=== PATIENT | male | born 1970 | race Caucasian/White ===

== ENCOUNTER 2024-06-29 14:29 | Outpatient (AMB) | payer MEDICARE, SELFPAY ==
--- NOTE | 2024-06-29 14:31 | A.OFFVIS_ITS ---
Vital Signs 06/29/24 14:36 Height 5 ft 9 in Weight 200 lb BMI 29.5 BP 142/91 H Blood Pressure Location Rt brachial Position Sitting Pulse 101 H Pulse Source Pulse Oximeter Pulse Oximetry (%) 99 Oxygen Delivery Method Room Air Intake Visit Reasons: Lumbago with sciatica, left side Vice President Risk Management Required: Yes Vice President Risk Management Language: Maintenance Mechanic Technician Services: Vice President Risk Management Present Vice President Risk Management Name: Reese Information Interpreted: non-clinical & clinical Allergies No Known Allergies Allergy (Verified 06/29/24 14:36) HPI HPI Lumbago with sciatica, left side: Details: The patient is a 54-year-old male presenting with chronic low back pain radiating to the left hip and knee, persisting over two years. The patient rates this pain as most intense during mornings and afternoons, with a reduction in severity during evenings. There has been no injury associated with this onset of pain, and the patient has not undergone any invasive procedures, although he is currently engaged in physical therapy at [facility]. The pain radiates to left buttock and into left hip with occasional radiation into groin with cramping. Patient also reports history of bilateral knee pain due to osteoarthritis and worsening left knee pain. He reports bilateral knee pain exacerbated by cold weather conditions, walking, and climbing stairs, with tenderness increasing during certain movements such as bending. An MRI previously conducted did not elucidate a cause for the ongoing back and sciatica pain per PCP referral notes. A complete MRI report is not available for review today. Diagnosed knee osteoarthritis adds to this complex pain scenario. Further complications include reliance on a cane due to intermittent leg weakness and the presence of psychiatric disorders. He receives [employer] ASSEMBLER services, including assistance of taking daily medications as he cannot read. The patient has been on ibuprofen therapy, which provides some relief for the hip, back and knee-related discomfort. - Onset/Timing: Chronic, ongoing for about two years; worse in morning and afternoon, better in the evening. - Quality/Character: Tingling numbness, cramping, hurting, sore sensation. - Primary Location: Low back. Left knee. - Radiation: Left buttock, back of the left leg, hip and groin. - Exacerbating Factors: Morning and afternoon time, walking, climbing stairs, cold weather, bending down, bending backward. - Relieving Factors: Evening, resting. - Interference with Activities: Walking, use of a cane due to leg weakness, difficulty with stairs. - Affect: Pain has led to potential avoidance of interventions involving needles. - Analgesia: Currently taking ibuprofen 800 mg as needed every eight hours for pain, reported as helpful. - Adverse Effects: None reported from ibuprofen. - Activities of Daily Living: Pain causes difficulty in walking and using stairs; requires use of a cane. - Aberrant Drug Related Behaviors: None reported. [facility] Medical History Thalassemia trait Amputation of left little finger Hearing loss Anxiety Sleep disturbance Hyperlipidemia Erectile dysfunction Bipolar 1 disorder Schizophrenia Depression Social History Alcohol intake: never Patient Tobacco Use Status: Former Tobacco user Review of Systems Const Details: - Musculoskeletal: Reports low back pain radiating to the left buttock and leg, bilateral knee pain, left worse than right; denies foot pain. - Neurological: Reports cramping, numbness and tingling sensation. - Psychiatric: Reports bipolar disorder and paranoid schizophrenia. - Respiratory: Denies smoking currently or any recent cessation issues. - Social: Denies alcohol use for the past 20 years. All systems reviewed & are unremarkable except as noted in HPI and below Physical Exam Vital Signs: Last Vital Signs Pulse 101 H 06/29/24 14:36 BP 142/91 H 06/29/24 14:36 Pulse Ox 99 06/29/24 14:36 Oxygen Delivery Method Room Air 06/29/24 14:36 BMI result Body Mass Index 29.5 General: Appears afebrile. Alert and oriented. Mood and affect appropriate. Follows and participates in conversation appropriately. Respiratory effort is unlabored. No cough. Able to transition from sit to stand unassisted. Uses cane with ambulation. Ambulates with bilaterally normal heel strike and toe off. General: Yes no CVA tenderness Back/Spine/Pelvis Other: Limited lumbar ROM due to pain. Mildly antalgic gait with slight limping. Can flex forward to 75-80 degrees and extend to 5-10 degrees before experiencing lumbar pain. Demonstrates 5/5 strength of quadriceps bilaterally as well as flexion/dorsiflexion of bilateral feet against resistance. 2+ pedal pulses bilaterally. Straight leg rise with dorsiflexion negative bilaterally. +1 patellar and achilles reflexes bilaterally. Facet loading test positive bilaterally. Naveed sign, Juan?s, Pelvic compression and Stinchfield tests are positive bilaterally, left>right. Mild groin pain with I/E hip rotations on the left. Valsalva maneuver negative. Back: no CVA tenderness Cervical Spine: cervical ROM normal and No Cervical spine tenderness Thoracic/Lumbar Spine: thoracic and lumbar spine normal to inspection, No Thoracic/lumbar spine scar(s), Lasegue's sign negative, straight leg raise negative bilaterally, pain with thoraco-lumbar ROM, No thoracic spinal tenderness and No lumbar spinal tenderness Pelvis: buttock tenderness on the left Sacroiliac joints: bilaterally tender to palpation Extrem General: Yes capillary refill normal, Yes no clubbing, cyanosis or edema and Yes no calf tenderness Left lower extremity: knee (Limited ROM due to pain.) Details: normal to inspection, tenderness Location: of the medial joint line and of the lateral joint line and crepitus; no swelling, no ecchymosis and no unusual warmth Results Reviewed Results Reviewed: No imaging results are available for review today. Assessment & Plan Assessment & Plan (1) Left hip pain: Code(s): M25.552 - Pain in left hip Category: Medical (2) Chronic low back pain: Code(s): M54.50 - Low back pain, unspecified; G89.29 - Other chronic pain Category: Medical (3) Bilateral knee pain: Code(s): M25.561 - Pain in right knee; M25.562 - Pain in left knee Category: Medical (4) Bilateral primary osteoarthritis of knee: Code(s): M17.0 - Bilateral primary osteoarthritis of knee Category: Medical (5) Sacroiliac joint pain: Code(s): M53.3 - Sacrococcygeal disorders, not elsewhere classified Category: Medical Plan The patient's chronic low back pain with left-sided sciatica presents today with axial low back pain with left hip and SI joint pain components. His left side pain is also complicated by chronic left knee pain. Patient will continue with physical therapy, Ibuprofen and specific non-pharmacologic measures, including the application of heat or ice to manage symptoms. X-rays for the knee, hip, and lower back are ordered to further investigate any progression of osteoarthritis or other pain contributors. Ibuprofen remains part of the therapeutic regimen, providing symptomatic relief, while balancing this approach with the patient's psychological health support. Future management will depend on x-ray outcomes and release of lumbar MRI from PCP office and ongoing symptom evaluation. All questions and concerns have been answered and patient agreed with the plan. Follow up for xray results and sooner as needed. Patient was informed and verbally consented to the use of an ambient scribe for clinic note documentation during this visit. Orders: Orders XR knee LT 3V Today M25.561 - Pain in right knee, M25.562 - Pain in left knee XR lumbar spine 4V min Today G89.29 - Other chronic pain, M25.552 - Pain in left hip, M54.50 - Low back pain, unspecified XR hip LT w PEL1V Today M25.552 - Pain in left hip Coding Level of Care Code New Pt Level 4 (86916) Diagnoses Left hip pain M25.552 Chronic low back pain M54.50; G89.29 Bilateral knee pain M25.561; M25.562 Bilateral primary osteoarthritis of knee M17.0 Sacroiliac joint pain M53.3
[2024-06-29 14:36] VITALS: BP 142/91; PULSE 101; O2SAT 99; BMI 29.5
--- OUTSIDE RECORDS SUMMARY | 2024-06-29 17:32 | XMS_ITS | Clinical Summary ---
Author Organization [facility] Address [address] [place] [address] Care Team Providers Care Beverage Server Name Role Phone Bandar Goode COMBUSTION ENGINEER Primary Care Provider [phone] Source Comments PLEASE NOTE, if this patient is a minor, it may be UNLAWFUL to discuss sensitive information that is contained in these records (such as FAMILY PLANNING, MENTAL HEALTH or SUBSTANCE ABUSE) with the minor patient's parent or other person without the patient's specific authorization.[facility] Allergies No known active allergies Medications QUEtiapine (SEROQUEL) 200 mg tabletIndicatio ns:Anxiety and depression Take 1 Tab by mouth nightly at bedtime PER PSYCH 7 Active benztropine (COGENTIN) 1 mg tabletIndicatio ns:Anxiety and depression Take 1 Tab by mouth 2 (two) times daily PER PSYCH 7 Active citalopram (CELEXA) 40 mg tabletIndicatio ns:Anxiety and depression Take 1 Tab by mouth every morning PER PSYCH 7 Active citalopram (CELEXA) 20 mg tablet TK 1 T PO QD IN THE MORNING 3 8 Active risperiDONE (RISPERDAL) 4 mg tablet Take 8 mg by mouth nightly at bedtime 1 Active cloNIDine (CATAPRES) 0.1 mg tabletIndicatio ns:Anxiety and depression Take 0.1 mg by mouth 3 (three) times daily 2 Active guanFACINE (TENEX) 1 mg tabletIndicatio ns:Anxiety and depression TAKE 1 TABLET BY MOUTH TWICE DAILY FOR MOOD OR ANXIETY 2 Active clonazePAM (KLONOPIN) 1 mg tabletIndicatio ns:Anxiety and depression TAKE 1 TABLET BY MOUTH THREE TIMES DAILY NEEDED FOR ANXIETY 2 Active acetaminophen (TYLENOL) 500 mg tabletIndicatio ns:Bilateral chronic knee pain Take 2 Tablets by mouth every 6 (six) hours as needed for pain 120 Tablet 2 2 Active simvastatin (ZOCOR) 20 mg tabletIndicatio ns:Dyslipidemia TAKE 1 TABLET BY MOUTH EVERY NIGHT AT BEDTIME 90 Tablet 2 3 Active ibuprofen 800 mg tablet TAKE 1 TABLET BY MOUTH THREE TIMES DAILY NEEDED FOR PAIN 60 Tablet 2 3 Active diclofenac sodium (VOLTAREN) 1 % gelIndications: Chronic pain of left knee APPLY TOPICALLY TO THE AFFECTED AREA TWICE DAILY 100 g 1 3 Active Active Problems Problem Noted Date Diagnosed Date Gynecomastia 02/02/2022 Auditory hallucination 01/27/2022 Overview (01/27/2022): Admits voices tell him to harm himself Bilateral chronic knee pain 01/27/2022 Alpha thalassemia trait 01/14/2021 Overview (01/14/2021): Per heme and genetics- no further workup needed Not immune to hepatitis B virus 11/24/2016 Overview (11/24/2016): Refuses shots Alcoholism in remission ([facility]) 06/30/2016 Pterygium eye 03/25/2015 Anxiety and depression 10/04/2014 Overview (01/27/2022): Jan 2022: [facility] is provider 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 Overview (10/04/2014): Since a kid Never had therapy Applying for disab and got appt with a speech therapist in [place] Immunizations Immunization Administration Dates Next Due Moderna COVID-19 Vaccine, re d cap blue label, 12+ Primary Series 08/05/2020,07/06/2020,07/06/2020 PNEUMOCOCCAL POLYSACCHARIDE PPV23 08/05/2017 TDAP 08/05/2017 ZOSTER VACCINE, RECOMBINANT (SHINGRIX) 2,01/14/2021 Family History Medical History Relation Name Comments No Known Problems Brother Other Father accident Heart attack Maternal Grandfather Liver disease Mother No Known Problems Sister No Known Problems Son 1 Relation Name Status Comments Brother Alive Father Maternal Grandfather Mother Sister Alive Son 1 Alive Social History Tobacco Use Types Packs/Day Years Used Date Smoking Tobacco: Former Cigarettes 1 22 Smokeless Tobacco: Former Quit: 12/05/2004 Tobacco Cessation:Counseling Given: Not Answered Comments:quit Alcohol Use Standard Drinks/Week Comments No 0 (1 standard drink = 0.6 oz pur e alcohol) Social Connections Answer Date Recorded Connectedness 0 10/14/2020 Financial Resource Strain Answer Date R ecorded Financial Resource Strain 0 2020 Stress Answer Date Recorded Stress 0 10/14/2020 Physical Activity Answer Date Recorded Physical Activity 0 11/06/2018 Food Insecurity Answer Date Recorded Food 0 10/14/2020 Transportation Needs Answer Date Record ed Transportation 0 11/06/2018 Housing Stability Answer Date Recorded Housing 0 10/14/2020 Safety and Environment Answer Date Denny rded Safety 0 10/14/2020 Utilities Answer Date Recorded Utilities 0 10/14/2020 Employment Answer Date Recorded Employment 0 11/06/2018 Sex and Gender Information Value Date Recorded Sex Assigned at Male 08/05/2017 12:48 PM PDT Legal Sex Male 11:18 AM PDT Gender Identity Male 08/05/2017 12:48 PM PDT Sexual Orientation Straight 08/05/2017 12 :48 PM PDT Occupation Industry Job Start Date Job End Date disabled Not on file Not on file Not on file Last Filed Vital Signs Vital Sign Reading Time Taken Comments Blood Pressure 112/69 06/01/2022 9:58 AM EDT Pulse 91 06/01/2022 9:58 AM EDT Temperature 37.1 ??C (98.7 ??F) 01/27/2022 9:36 AM ES T Respiratory Rate 18 01/27/2022 9:36 AM EST Oxygen Saturation 99% 01/27/2022 9:36 AM EST Inhaled Oxygen Concentration - - Weight 92.6 kg (204 lb 1.6 oz) 01/27/2022 9:36 A M EST Height 175.3 cm (5' 9 ) 01/27/2022 9:36 AM EST Body Mass Index 30.14 01/27/2022 9:36 AM EST Plan of Treatment Health Maintenance Due Date Last Done Comments Anxiety Screening 1970 Dental FMX/Pano 1969 Dental Perio Charting 1970 Tobacco Screening 1970 Imm-Hepatitis B (1 of 3 - 19 + 3-dose series) 02/08/1988 CT Colonography 2014 Colonoscopy 2014 Fecal DNA 2014 Flexible Sigmoidoscopy 2014 Imm-Pneumococcal (2 of 2 - PCV) 08/05/2018 8 Depression Monitoring 04/29/2022 01/27/2022 , 01/14/2021, 08/14/2020, Additional history exists Annual Preventive Care Visit 01/27/2023, 08/14/2020, 08/05/2017, Additional history exists Colorectal Cancer Screening 01/27/2023 Diabetes Screening 01/27/2023 01/27/2022, 1 03/29/2021, 04/02/2020, Additional history exists FIT/gFOBT 01/27/2023 01/27/2022, 08/21/2020 Lipid Screening 01/27/2023 01/27/2022, 03/15, 12/05/2018, Additional history exists Hypertension Screening (#1) 06/01/2023 Dental BW 06/04/2023 06/01/2022, 12/01/2021 Dental Examination 06/04/2023 06/01/2022, 0 06/01/2022, 12/01/2021 Dental Prophy 06/04/2023 06/01/2022, 12/01/2021 [id number] ( season) 2023 08/05/2020, 07/06/2020, 07/06/2020 Alcohol and Drug Screen 03/15/2024 01/28/20, 08/14/2020, 05/11/2019, Additional history exists Imm-DTaP/Tdap/Td (2 - Td or Tdap) 08/06/2027 018 Imm-Influenza Discontinued 03/25/2015 Imm-Zoster, Recombinant Completed 05/12/2021, 01/14 HIV Screening Completed 01/27/2022, 07/13, 10/04/2014 Hepatitis C Screening Completed 01/27/2022 , 06/30/2016, 07/26/2015, Additional history exists Procedures Procedure Name Priority Date/Time Associated Diagnosis Comments BITEWINGS - FOUR RADIOGRAPHIC IMAGES Routine 06/01/2022 10:20 AM EDT Caries Full PROPHYLAXIS - ADULT Routine 06/01/2022 10:20 AM EDT Caries PERIODIC ORAL EVALUATION ESTABLISHED PATIENT Routine 06/01/2022 10:20 AM EDT Caries FECAL GLOBIN BY IMMUNOCHEMISTRY (FIT) Routine 01/27/2022 7:00 PM EST Examination, medical, general HIV 1/2 AG & AB W/RFLX (4TH GEN) Routine 01/27/2022 10:20 AM EST Examination, medical, general HEPATITIS C AB W/RFLX HCV RNA, QT, RT PCR Routine 01/27/2022 10:20 AM EST Examination, medical, general COMPREHENSIVE METABOLIC PANEL Routine 01/27/2022 10:20 AM EST Examination, medical, general LIPID PANEL Routine 01/27/2022 10:20 AM EST Examination, medical, general from Last 3 Months or Most Recently Relevant to Health Maintenance Results * FECAL GLOBIN BY IMMUNOCHEMISTRY (FIT) (01/27/2022 7:00 PM EST) FECAL GLOBIN BY IMMUNOCHEMISTRY See Note [employer] Comment: ??FECAL GLOBIN BY IMMUNOCHEMISTRY ?Micro Number: ?[id number] ??Test Status: ? Final ??Specimen Source: ?? Insure (tm) fobt test card ??Specimen Quality: ??Adequate ??Fecal Globin: ?Not Detected ??Comment: ? Test results may be invalid as no date of ? collection was provided. Specimens are stable ? for 14 days. Stool Stool specimen / Unknown 01/27/2022 7:00 PM EST 01/30/2022 12:13 AM EST [facility] - NO BLOOD DRAW Final Result Performing Organization Address [facility] de Phone Number [employer] [facility] [address] [address], [employer] [address] [address] * HEPATITIS C AB W/RFLX HCV RNA, QT, RT PCR (01/27/2022 10:20 AM EST) Pathologist [facility] HEPATITIS C ANTIBODY NON-REACT LOUIS NON-REACT LOUIS [employer] SIGNAL TO CUT-OFF 0.07 <1.00 [employer] Comment: HCV antibody was non-reactive. There is no laboratory evidence of HCV infection. In most cases, no further action is required. However, if recent HCV exposure is suspected, a test for HCV RNA (test code 92123) is suggested. For additional information please refer to http://education.[employer]/faq/ASE27j4 (This link is being provided for informational/ educational purposes only.) Blood Blood / Unknown 01/27/2022 1 0:20 AM EST 01/27/2022 10:21 AM EST [facility] Chi[facility] FNP LAB - BLOOD DRAW Edited R esult - Final Performing Organization Address City/[facility]/ZIP Co de Phone Number [employer] [address] [address], [employer] [address] [address] * HIV 1/2 AG & AB W/RFLX (4TH GEN) (01/27/2022 10:20 AM EST) HIV AG/AB, 4TH GEN NON-REAC TIVE NON-REAC TIVE [employer] Comment: HIV-1 antigen and HIV-1/HIV-2 antibodies were not detected. There is no laboratory evidence of HIV infection. PLEASE NOTE: This information has been disclosed to you from records whose confidentiality may be protected by state law. ??If your state requires such protection, then the state law prohibits you from making any further disclosure of the information without the specific written consent of the person to whom it pertains, or as otherwise permitted by law. A general authorization for the release of medical or other information is NOT sufficient for this purpose. ?? For additional information please refer to http://education.[employer]/faq/GMX054 (This link is being provided for informational/ educational purposes only.) The performance of this assay has not been clinically validated in patients less than 2 years old. Blood Blood / Unknown 01/27/2022 1 0:20 AM EST 01/27/2022 10:21 AM EST Bandar [facility] LAB - BLOOD DRAW Final Re sult [facility] [address] [address], [employer] [address] [address] * (ABNORMAL) LIPID PANEL (01/27/2022 10:20 AM EST) CHOLESTEROL, TOTAL 142 <200 mg/dL [facility] HDL CHOLESTEROL 34(L) > OR = 40 mg/dL [facility] TRIGLYCERIDES 294(H) <150 mg/dL [facility] Comment: If a non-fasting specimen was collected, consider repeat triglyceride testing on a fasting specimen if clinically indicated. Gurjit et al. J. of Clin. Lipidol. 2015;9:129-169. LDL-CHOLESTEROL 73 99 mg/dL (calc) [facility] Comment: Reference range: <100 Desirable range <100 mg/dL for primary prevention; ?? <70 mg/dL for patients with CHD or diabetic patients with > or = 2 CHD risk factors. LDL-C is now calculated using the Annie calculation, which is a validated novel method providing better accuracy than the Friedewald equation in the estimation of LDL-C. Pee SS et al. TEO. 2013;310(19): 7330-6381 (http://education.[employer]/faq/QEZ259) CHOL/HDLC RATIO 4.2 <5.0 (calc) [facility] NON-HDL CHOLESTEROL 108 <130 mg/dL (calc) [facility] Comment: For patients with diabetes plus 1 major ASCVD risk factor, treating to a non-HDL-C goal of <100 mg/dL (LDL-C of <70 mg/dL) is considered a therapeutic option. Blood Blood / Unknown 01/27/2022 1 0:20 AM EST 01/27/2022 10:21 AM EST Bandar Goode COMBUSTION ENGINEER LAB - BLOOD DRAW Final Re sult [facility] [address] [place] [address], [employer] [address] [place] [address],[place] [address] * (ABNORMAL) COMPREHENSIVE METABOLIC PANEL (01/27/2022 10:20 AM EST) GLUCOSE 107(H) 65 - 99 mg/dL [facility] Comment: ?Fasting reference interval For someone without known diabetes, a glucose value between 100 and 125 mg/dL is consistent with prediabetes and should be confirmed with a follow-up test. UREA NITROGEN (BUN) 16 7 - 25 mg/dL [facility] CREATININE (blood) 1.08 0.70 - 1.30 mg/dL [facility] EGFR 83 > OR = 60 mL/min/1 .73m2 [facility] Comment: The eGFR is based on the CKD-EPI 2020 equation. To calculate the new eGFR from a previous Creatinine or Cystatin C result, go to https://www.kidney.org/professionals/ kdoqi/gfr%5Fcalculator BUN/CREATININE RATIO NOT APPLICABLE 6 - 22 [facility] SODIUM 139 135 - 146 mmol/L [facility] POTASSIUM 4.1 3.5 - 5.3 mmol/L [facility] CHLORIDE 105 98 - 110 mmol/L [employer] CARBON DIOXIDE 23 20 - 32 mmol/L [employer] CALCIUM 10.0 8.6 - 10.3 mg/dL [facility] PROTEIN, TOTAL 7.0 6.1 - 8.1 g/dL [employer] [facility] ALBUMIN 4.3 3.6 - 5.1 g/dL [facility] GLOBULIN 2.7 1.9 - 3.7 g/dL (calc) [facility] ALBUMIN/GLOBUL IN RATIO 1.6 1.0 - 2.5 (calc) [facility] BILIRUBIN, TOTAL 0.4 0.2 - 1.2 mg/dL [facility] ALKALINE PHOSPHATASE 87 35 - 144 U/L [facility] AST 20 10 - 35 U/L [facility] ALT 21 9 - 46 U/L [facility] Blood Blood / Unknown 01/27/2022 1 0:20 AM EST 01/27/2022 10:21 AM EST [facility] LAB - BLOOD DRAW Edited R esult - Final [employer] [facility] [address] [address], [employer] [facility] [address],[facility] [place] [address] from Last 3 Months or Most Recently Relevant to Health Maintenance Insurance HEALTH SAFETY NET DENTAL MEDICAID DENTAL [facility] Care Teams Beverage Server Relationship Specialty Start Date End Date Bandar Goode FNP [address] [place] [address] PCP - General Family Medicine, KEY ACCOUNT MANAGER 01/31/20
--- OUTSIDE RECORDS SUMMARY | 2024-06-29 17:32 | XMS_ITS ---
Author Organization Cathy Argueta MD Address [address] [place] [phone] Care Team Providers Care Terrazzo Grinder Name Role Phone Joelle Schrader Primary Care Provider REASON FOR VISIT pain referral Encounters Encounter Location Date Provider Diagnosis Cathy Argueta MD [address] DID[place] [address] [place] [phone] 05/04/2024 Joelle Schrader Plan Of Treatment Next Appt Details Provider Name:Joelle Schrader , 08/31/2024 10:00:00 AM, [address] [place] [address], [phone], Provider Name:Joelle Schrader , 2025 10:30:00 AM, [address] [place] [address], [phone], Progress Notes * Grant CLINTONDOB: [birth year] (54 yo M)Acc No.[id number]:05/04/2024 Patient:?Grant CLINTON :1970???Age:54 Y???Sex:Male Address:[address] [place] [id number] * true * Date:? Generated for Peg copeland/Vaibhav/eTransmitting on:?06/29/2024 05:31 PM EDT
--- OUTSIDE RECORDS SUMMARY | 2024-06-29 17:32 | XMS_ITS | Patient Health Record ---
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 Name Role Phone Humza Ham Primary Care Provider Allergies No Known Allergies Results Component Value Reference Range Notes MR Lumbar Spine WO Reviewed date:10/12/2023 06:56:22 PM Interpretation: Performing Lab: Notes/Report: Original Ordering Provider: HUMZA HAM [facility] PDF Report Reviewed date:07/21/2023 04:28:08 PM Interpretation: Performing Lab:[facility], [address] [facility], Phone - [phone], Director - Jose Notes/Report: Clinical Information:SRC: Vitamin D, [id number] Reviewed date:02/06/2024 06:37:26 PM Interpretation: Performing Lab:[facility], [address] [facility], [place], Phone - [phone], Director - Jose Notes/Report: Clinical Information:SRC: Vitamin D, 25-Hydroxy 20.9 30.0-100.0 ng/mL Vitamin D deficiency has been defined by the [place] of [employer] and an Endocrine Society practice guideline as a level of serum 25-OH vitamin D less than 20 ng/mL (1,2). The Endocrine Society went on to further define vitamin D insufficiency as a level between 21 and 29 ng/mL (2). 1. IOM ([place] of [employer]). 2010. Dietary reference intakes for calcium and D. [place]: The National Academies Press. 2. Miguelina MF, Wang NC, Ashley COX, et al. Evaluation, treatment, and prevention of vitamin D deficiency: an Endocrine Society clinical practice guideline. JCEM. 2010; 96(8):1911-30. HCV Antibody RFX to Quant PC [id number] Reviewed date:02/06/2024 06:37:26 PM Interpretation: Performing Lab:[facility], [address] [place] [address], Phone - [phone], Director - Jose Notes/Report: Clinical Information:SRC: Clinical Information:SRC: HCV Ab Non Reactive Non Reactive Interpretation: Not infected with HCV unless early or acute infection is suspected (which may be delayed in an immunocompromised individual), or other evidence exists to indicate HCV infection. Comp. Metabolic Panel (14)-3 [id number] Reviewed date:02/06/2024 06:37:26 PM Interpretation: Performing Lab:[facility] [place], [address] [place] [address], Phone - [phone], Director - Jose Notes/Report: Clinical Information:SRC: Glucose 98 70-99 mg/dL BUN 14 6-24 mg/dL Creatinine 0.97 0.76-1.27 mg/dL eGFR 93 >59 mL/min/1.73 BUN/Creatinine Ratio 14 9-20 Sodium 143 134-144 mmol/L Potassium 4.9 3.5-5.2 mmol/L Chloride 106 96-106 mmol/L Carbon Dioxide, Total 16 20-29 mmol/L Calcium 10.0 8.7-10.2 mg/dL Protein, Total 7.8 6.0-8.5 g/dL Albumin 4.7 3.8-4.9 g/dL Globulin, Total 3.1 1.5-4.5 g/dL Bilirubin, Total 0.3 0.0-1.2 mg/dL Alkaline Phosphatase 111 44-121 IU/L AST (SGOT) 28 0-40 IU/L ALT (SGPT) 33 0-44 IU/L LP+Non-HDL Cholesterol-[id number] 5 Reviewed date:02/06/2024 06:37:26 PM Interpretation: Performing Lab:[facility], [address] [place] [address], [place], Phone - [phone], Director - Jose Notes/Report: Clinical Information:SRC: Cholesterol, Total 128 100-199 mg/dL Triglycerides 152 0-149 mg/dL HDL Cholesterol 36 >39 mg/dL VLDL Cholesterol Titus 26 5-40 mg/dL LDL Chol Calc ([facility]) 66 0-99 mg/dL Non-HDL Cholesterol 92 0-129 mg/dL UA/M w/rflx Culture, Routine -[id number] Reviewed date:02/06/2024 06:37:26 PM Interpretation: Performing Lab:[facility] Zambrano, [address] [facility], Phone - [phone], Director - Jose Notes/Report: Clinical Information:SRC: Clinical Information:SRC: Specific [place] 1.020 1.005-1.030 pH 6.0 5.0-7.5 Urine-Color Yellow Yellow Appearance Clear Clear WBC Esterase Negative Negative Protein Negative Negative/Trace Glucose Negative Negative Ketones Negative Negative Occult Blood Negative Negative Bilirubin Negative Negative Urobilinogen,Semi-Qn 0.2 0.2-1.0 mg/dL Nitrite, Urine Negative Negative Microscopic Examination Micr oscopic follows if indicated. Microscopic Examination See below: Micr oscopic was indicated and was performed. Urinalysis Reflex This speci men will not reflex to a Urine Culture. WBC None seen 0 - 5 /hpf RBC None seen 0 - 2 /hpf Epithelial Cells (non renal) None seen 0 - 10 /hpf Casts None seen None seen /lpf Bacteria None seen None seen/Few CBC With Differential/Platel et-[id number] Reviewed date:07/21/2023 04:28:08 PM Interpretation: Performing Lab:Akash Zambrano, [address] [facility], [place], Phone - [phone], Director - Jose Notes/Report: Clinical Information:SRC: WBC 6.6 3.4-10.8 x10E3/uL RBC 5.88 4.14-5.80 x10E6/uL Hemoglobin 13.4 13.0-17.7 g/dL Hematocrit 43.0 37.5-51.0 % MCV 73 79-97 fL MCH 22.8 26.6-33.0 pg MCHC 31.2 31.5-35.7 g/dL RDW 15.2 11.6-15.4 % Platelets 239 150-450 x10E3/uL Neutrophils 62 Not Estab. % Lymphs 27 Not Estab. % Monocytes 8 Not Estab. % Eos 2 Not Estab. % Basos 1 Not Estab. % Neutrophils (Absolute) 4.2 1.4-7.0 x10E3/uL Lymphs (Absolute) 1.8 0.7-3.1 x10E3/uL Monocytes(Absolute) 0.5 0.1-0.9 x10E3/uL Eos (Absolute) 0.1 0.0-0.4 x10E3/uL Baso (Absolute) 0.0 0.0-0.2 x10E3/uL Immature Granulocytes 0 Not Estab. % Immature Grans (Abs) 0.0 0.0-0.1 x10E3/uL Comp. Metabolic Panel (14)-3 Reviewed date:07/21/2023 04:28:08 PM Interpretation: Performing Lab:Labc[facility]renda Zambrano, [address] [facility], Phone - [phone], Director - Jose Notes/Report: Clinical Information:SRC: Glucose 101 70-99 mg/dL BUN 12 6-24 mg/dL Creatinine 0.97 0.76-1.27 mg/dL eGFR 93 >59 mL/min/1.73 BUN/Creatinine Ratio 12 9-20 Sodium 143 134-144 mmol/L Potassium 4.4 3.5-5.2 mmol/L Chloride 106 96-106 mmol/L Carbon Dioxide, Total 24 20-29 mmol/L Calcium 9.5 8.7-10.2 mg/dL Protein, Total 6.8 6.0-8.5 g/dL Albumin 4.3 3.8-4.9 g/dL Globulin, Total 2.5 1.5-4.5 g/dL A/G Ratio 1.7 1.2-2.2 Bilirubin, Total 0.4 0.0-1.2 mg/dL Alkaline Phosphatase 103 44-121 IU/L AST (SGOT) 21 0-40 IU/L ALT (SGPT) 27 0-44 IU/L LP+Non-HDL Cholesterol-[id number] 5 Reviewed date:07/21/2023 04:28:08 PM Interpretation: Performing Lab:Devc[facility]renda Zambrano, [address] [facility], [place], Phone - [phone], Director - Jose Notes/Report: Clinical Information:SRC: Cholesterol, Total 163 100-199 mg/dL Triglycerides 179 0-149 mg/dL HDL Cholesterol 42 >39 mg/dL VLDL Cholesterol Titus 31 5-40 mg/dL LDL Chol Calc (NIH) 90 0-99 mg/dL Non-HDL Cholesterol 121 0-129 mg/dL CBC With Differential/Platel et-[id number] Reviewed date:02/06/2024 06:37:26 PM Interpretation: Performing Lab:Akash Zambrano, [address] [facility], Phone - [phone], Director - Jose Notes/Report: Clinical Information:SRC: WBC 6.8 3.4-10.8 x10E3/uL Effective February 14, 2024 profile [id number] WBC will be made non-orderable as a stand-alone order code. RBC 6.16 4.14-5.80 x10E6/uL Hemoglobin 13.9 13.0-17.7 g/dL Hematocrit 45.2 37.5-51.0 % MCV 73 79-97 fL MCH 22.6 26.6-33.0 pg MCHC 30.8 31.5-35.7 g/dL RDW 14.6 11.6-15.4 % Platelets 257 150-450 x10E3/uL Neutrophils 61 Not Estab. % Lymphs 28 Not Estab. % Monocytes 8 Not Estab. % Eos 3 Not Estab. % Basos 0 Not Estab. % Neutrophils (Absolute) 4.1 1.4-7.0 x10E3/uL Lymphs (Absolute) 1.9 0.7-3.1 x10E3/uL Monocytes(Absolute) 0.6 0.1-0.9 x10E3/uL Eos (Absolute) 0.2 0.0-0.4 x10E3/uL Baso (Absolute) 0.0 0.0-0.2 x10E3/uL Immature Granulocytes 0 Not Estab. % Immature Grans (Abs) 0.0 0.0-0.1 x10E3/uL CR Lumbar Spine Minimum 4 Vw s Reviewed date:07/20/2023 04:02:02 PM Interpretation: Performing Lab: Notes/Report: CBC With Differential/Platel et-[id number] Reviewed date:04/30/2024 07:45:57 PM Interpretation: Performing Lab:[facility]renda Zambrano, [address] [facility], [place], Phone - [phone], Director - Jose Notes/Report: Clinical Information:SRC: WBC 6.7 3.4-10.8 x10E3/uL RBC 6.26 4.14-5.80 x10E6/uL Hemoglobin 14.0 13.0-17.7 g/dL Hematocrit 45.6 37.5-51.0 % MCV 73 79-97 fL MCH 22.4 26.6-33.0 pg MCHC 30.7 31.5-35.7 g/dL RDW 14.3 11.6-15.4 % Platelets 243 150-450 x10E3/uL Neutrophils 60 Not Estab. % Lymphs 30 Not Estab. % Monocytes 6 Not Estab. % Eos 3 Not Estab. % Basos 1 Not Estab. % Neutrophils (Absolute) 4.0 1.4-7.0 x10E3/uL Lymphs (Absolute) 2.0 0.7-3.1 x10E3/uL Monocytes(Absolute) 0.4 0.1-0.9 x10E3/uL Eos (Absolute) 0.2 0.0-0.4 x10E3/uL Baso (Absolute) 0.0 0.0-0.2 x10E3/uL Immature Granulocytes 0 Not Estab. % Immature Grans (Abs) 0.0 0.0-0.1 x10E3/uL Comp. Metabolic Panel (14)-3 Reviewed date:04/30/2024 07:45:57 PM Interpretation: Performing Lab:[facility], [address] [facility] [address], [place], Phone - [phone], Director - Jose Notes/Report: Clinical Information:SRC: Glucose 99 70-99 mg/dL BUN 13 6-24 mg/dL Creatinine 1.00 0.76-1.27 mg/dL eGFR 89 >59 mL/min/1.73 BUN/Creatinine Ratio 13 9-20 Sodium 140 134-144 mmol/L Potassium 4.7 3.5-5.2 mmol/L Chloride 102 96-106 mmol/L Carbon Dioxide, Total 21 20-29 mmol/L Calcium 9.4 8.7-10.2 mg/dL Protein, Total 7.2 6.0-8.5 g/dL Albumin 4.6 3.8-4.9 g/dL Globulin, Total 2.6 1.5-4.5 g/dL Bilirubin, Total 0.4 0.0-1.2 mg/dL Alkaline Phosphatase 113 44-121 IU/L AST (SGOT) 23 0-40 IU/L ALT (SGPT) 30 0-44 IU/L LP+Non-HDL Cholesterol-[id number] 5 Reviewed date:04/30/2024 07:45:57 PM Interpretation: Performing Lab:[facility], [address], [place], Phone - [phone], Director - Jose Notes/Report: Clinical Information:SRC: Cholesterol, Total 112 100-199 mg/dL Triglycerides 111 0-149 mg/dL HDL Cholesterol 37 >39 mg/dL VLDL Cholesterol Titus 20 5-40 mg/dL LDL Chol Calc (NIH) 55 0-99 mg/dL Non-HDL Cholesterol 75 0-129 mg/dL Reason For Referral Reason Pt with OA both knee s and would benefit from ortho consult , Any available provider, Needs a Sprayer Machine faxed Diagnosis 1 Bilateral primary os teoarthritis of knee (M17.0) Referral Organization [facility] Referring Provider First Name Humza Referring Provider Last Name Macrina Referring Provider Speciality Nurse Guanakito mendiola Referred Provider Mackenzie Cabezas Referred Provider Specialty Orthopedic S urgery General Notes Jessica MARIE 09/12 12:16:00 PM >[facility] referral form faxed, Jessica MARIE 04/27/2024 10:20:37 AM >Patient states not hearing from referral, but patient needs first mate. Will refax referral and follow up for appt., Jessica MARIE 05/18/2024 10:34:13 AM >Updating referral, sending to Dr. Cabezas office Referral Priority Routine Reason lumbar pain with rad iating pain down left leg - MRI was without significant findings. 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 Wrote down the appt and address for patient. Notified him to bring partner since they do not have a yard spotter in the office., Humza Hma 05/08/2024 12:31:11 PM EST > We can refer pt to [facility], as long as his insurance is in network there, Jessica MARIE 05/08/2024 12:51:27 PM >Patient needs local provider since he takes public transportation. Will fax to [facility], Jessica MARIE 05/09/2024 03:20:18 PM >Completed [facility] form and faxed, Jessica MARIE 06/13/2024 09:17:23 AM >[facility] does not take patients insurance, TE to provider, Jessica MARIE 06/13/2024 02:31:41 PM >Updating referral to [facility] Referral Priority Routine Medications Medication SIG (Take, Route, Frequency, Duration) Notes Start Date End Date Status Citalopram Hydrobromide 40 MG 1 tablet Orally Once a day for 30 days Active Zolpidem Tartrate 10 MG 1 tablet at bedt evelyn as needed Orally Once a day Active Terbinafine HCl 250 MG TOME 1 TABLETA PO R VIA ORAL TODOS [place] FOR 90 DAYS for 90 Active Ibuprofen 800 MG TOME 1 TABLETA POR V IA ORAL CADA 8 HORAS CUANDO SEA NECESARIO CON COMIDA O LECHE for 90 Active risperiDONE 4 MG 1 tablet Orally Once a day for 30 day(s) Active Rosuvastatin Calcium 20 MG 1 tablet at b edtime Orally Once a day for 90 days Active Diclofenac Sodium 1 % APPLY TOPICALLY TO AFFECTED AREA ONCE DAILY EXTERNALLY DAILY 90 DAYS for 90 Active Citalopram Hydrobromide 20 MG 1 tablet Orally Once a day for 30 day(s) Active clonazePAM 1 MG 1 tablet Orally Once a day Active Benztropine Mesylate 1 MG 1 tablet Orall y Once a day for 30 day(s) Active Vitamin D3 50 MCG (2000 UT) 2 tablets Orally Once a day for 90 days 02/06/2024 01/31/2025 Active QUEtiapine Fumarate 400 MG 1 tablet at b edtime Orally Once a day for 30 days Active cloNIDine 0.1 MG/24HR 1 patch to skin Transdermal Active guanFACINE HCl 1 MG 1 tablet at bedtime Orally Once a day for 30 day(s) Active Immunizations Vaccine Route Administration Date Status Comme nts Pneumococcal polysaccharide PPV23 Unknown 08/05/2017 Ad ministered OZYHE-23-Neuozoa Vaccine Unknown 07/06/2020 Administere d [id number]-85-Ezidllp Vaccine Unknown 08/05/2020 Administere d *Tdap Unknown 08/05/2017 Administered *Shingrix Unknown 01/14/2021 Administered *Shingrix Unknown 05/12/2021 Administered Social History Tobacco Use: Social History Observation Description Date Details (start date - stop date) Never Smoker NA - NA Tobacco Use/Smoking Question Answer Notes Are you a nonsmoker Tobacco use other than smoking: Question Answer Notes Are you an other tobacco user? No Problems Problem Type SNOMED Code ICD Code Onset Dates Problem Status W/U Status Risk Notes Problem Alpha thalassemia (67396913) Alpha thalassemia (D56.0) Active confirmed Problem Vitamin D deficiency (15740576) Vitamin D deficiency, unspecified (E55.9) Active confirmed Problem Mixed hyperlipidemia (914824940) Mixed hyperlipidemia (E78.2) Active confirmed Problem Paranoid schizophrenia (05293637) Paranoid schizophrenia (F20.0) Active confirmed Problem Mixed bipolar affective disorder, mild (690971916) Bipolar disorder, current episode mixed, mild (F31.61) Active confirmed Problem Mixed conductive and sensorineural hearing loss, bilateral (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) Mixed conductive and sensorineural hearing loss, 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) Active confirmed Problem Osteoarthritis of knee (869771593) Bilateral primary osteoarthritis of knee (M17.0) Active confirmed Problem Sciatica (03738574) Lumbago with sciatica, left side (M54.42) Active confirmed Problem Erectile dysfunction co-occurrent and due to arterial insufficiency (disorder) (947585873424187) Erectile dysfunction due to arterial insufficiency (N52.01) Active confirmed Vital Signs Heart Rate 104 /min 04/27/2024 Temperature 96.3 degrees Fahrenheit 04/27/2024 Oximetry 96 % 04/27/2024 Blood pressure diastolic 68 mm Hg 04/27/2024 Height 5 ft 9 in in 04/27/2024 Blood pressure systolic 112 mm Hg 04/27/2024 Weight 206 lbs 04/27/2024 BMI 30.42 kg/m2 04/27/2024 Encounters Encounter Location Date Provider Diagnosis Cathy Argueta MD [address] [id number] 07/19/2023 Humza Ham Lumbago with sciatic a, left side M54.42 ; Mixed hyperlipidemia E78.2 ; Mixed conductive and sensorineural hearing loss, bilateral H90.6 ; Bipolar disorder, current episode mixed, mild F31.61 ; Paranoid schizophrenia F20.0 and Bilateral primary osteoarthritis of knee M17.0 [facility]athy [facility] MD [address] [id number] 09/29/2023 Humza Ham Bilateral primary osteoarthritis of knee M17.0 ; Lumbago with sciatica, left side M54.42 ; Mixed hyperlipidemia E78.2 ; Mixed conductive and sensorineural hearing loss, bilateral H90.6 ; Bipolar disorder, current episode mixed, mild F31.61 and Paranoid schizophrenia F20.0 [facility]athy [facility] MD [address] [id number] 02/03/2024 Humza Ham Encounter for genera l adult medical examination without abnormal findings Z00.00 ; Mixed hyperlipidemia E78.2 ; Mixed conductive and sensorineural hearing loss, bilateral H90.6 ; Lumbago with sciatica, left side M54.42 ; Bilateral primary osteoarthritis of knee M17.0 ; Bipolar disorder, current episode mixed, mild F31.61 ; Paranoid schizophrenia F20.0 ; Erectile dysfunction due to arterial insufficiency N52.01 ; Alpha thalassemia D56.0 ; Tinea unguium B35.1 ; Vitamin D deficiency, unspecified E55.9 ; Encounter for screening for malignant neoplasm of colon Z12.11 ; Encounter for screening mammogram for malignant neoplasm of breast Z12.31 ; Encounter for screening for osteoporosis Z13.820 ; Encounter for screening for cardiovascular disorders Z13.6 ; Encounter for immunization Z23 ; Encounter for antibody response examination Z01.84 ; Encounter for screening for other viral diseases Z11.59 and Encounter for screening examination for other mental health and behavioral disorders Z13.39 Cathy Argueta MD [address] [id number] 04/27/2024 Humza Ham Mixed hyperlipidemia E78.2 ; Mixed conductive and sensorineural hearing loss, bilateral H90.6 ; Lumbago with sciatica, left side M54.42 ; Bilateral primary osteoarthritis of knee M17.0 ; Bipolar disorder, current episode mixed, mild F31.61 ; Paranoid schizophrenia F20.0 ; Alpha thalassemia D56.0 and Tinea unguium B35.1 Cathy [facility] MD [address] [id number] 07/20/2023 Humza Argueta MD [address] [id number] 07/21/2023 Humza Ham Mixed hyperlipidemia E78.2 [facility] MD [address] [id number] 10/04/2023 Humza Argueta MD [address] [id number] 11/22/2023 Humza Argueta MD [address] [id number] 01/10/2024 Humza Ham Mixed hyperlipidemia E78.2 [facility]athy [facility] MD [address] [id number] 02/04/2024 Humza Argueta MD [address] [id number] 02/06/2024 Humza Ham Vitamin D deficiency , unspecified E55.9 [facility]athy [facility] MD [address] [id number] 05/04/2024 Humza Argueta MD [address] [id number] 05/04/2024 [facility]za Argueta MD [address] [id number] 06/13/2024 Humza Ham Assessments Encounter Date Diagnosis (ICD Code) Assessment Notes Treatment Notes Treatment Clinical Notes Section Notes 04/27/2024 Mixed hyperlipidemia (ICD-10 - E78.2) Stable on previous lab results. Will obtain an updated lipid panel to ensure adequate LDL control on current medication regimen 04/27/2024 Mixed conductive and sensorineural hearing loss, bilateral (ICD-10 - H90.6) Stable at present time 02/06/2024 Vitamin D deficiency, unspecified (ICD-10 - E55.9) 02/03/2024 Mixed hyperlipidemia (ICD-10 - E78.2) Stable and LDL well controlled with last lab draw. Patient to remain on current statin therapy. Will obtain an updated lipid panel to ensure adequate LDL control 02/03/2024 Encounter for general adult medical examination without abnormal findings (ICD-10 - Z00.00) General healthcare up-to-date. Will obtain updated routine labs.Plan will be for annual in 1 year 01/10/2024 Mixed hyperlipidemia (ICD-10 - E78.2) 07/19/2023 Lumbago with sciatica, left side (ICD-10 - M54.42) Discussed patient's concerns of low back pain and radiating pain into his left hip. Discussed with patient that obtaining a lumbar x-ray would be helpful in determining underlying causes for his discomfort patient also agreeable to begin physical therapy and a PT order was provided to patient and he plans to follow-up with Abisai to begin physical therapy for his back pain. Patient to follow-up in 2 months to reassess back pain and determine if any additional imaging is warranted 09/29/2023 Bilateral primary osteoarthritis of knee (ICD-10 - M17.0) Patient continues to have pain in both knees related to osteoarthritis. Patient has felt improvement with topical diclofenac and Motrin use but states the pain has not fully resolved. Patient agreeable to be seen by orthopedics to discuss interventions such as injections versus surgery and total knee replacements given progressive OA and persistent pain 07/21/2023 Mixed hyperlipidemia (ICD-10 - E78.2) 07/19/2023 Mixed hyperlipidemia (ICD-10 - E78.2) Patient to remain on current statin therapy and will obtain an updated lipid panel to ensure adequate control 09/29/2023 Lumbago with sciatica, left side (ICD-10 - M54.42) Discussed patient's continued concerns of low back pain and radiating pain into his left hip. Patient recently completed physical therapy for low back and sciatica pain. Given persistent pain despite obtaining x-rays and completing a course of physical therapy, patient would benefit from a lumbar spine MRI to assess for underlying stenosis. Patient agreeable with this plan 02/03/2024 Mixed conductive and sensorineural hearing loss, bilateral (ICD-10 - H90.6) Stable at present time 04/27/2024 Lumbago with sciatica, left side (ICD-10 - M54.42) Patient continues to have intermittent low back pain. He previously completed a course of physical therapy, as well as obtaining x-rays and a lumbar MRI without findings to explain continued low back pain and intermittent sciatica pain. Patient admits to not scheduling appointment with Dr. Ching as previously referred. Patient is agreeable to have our office contact this specialist to schedule a visit for him to ensure proper management of his persistent back pain 04/27/2024 Bilateral primary osteoarthritis of knee (ICD-10 - M17.0) Patient continues to have pain in both knees related to osteoarthritis, that is worse during cold weather. Patient admits to not scheduling a visit with the orthopedic office as previously referred. Patient agreeable to have our office contact orthopedic provider to schedule a visit for him given his language barrier 09/29/2023 Mixed hyperlipidemia (ICD-10 - E78.2) Stable and LDL well controlled with last lab draw. Patient to remain on current statin therapy 02/03/2024 Lumbago with sciatica, left side (ICD-10 - M54.42) Patient continues to have intermittent low back pain. He has begun using a cane to assist with ambulation due to this intermittent pain as well as bilateral knee pain due to osteoarthritis. Patient previously completed physical therapy, as well as x-rays and a lumbar MRI without findings to explain continued low back pain and sciatica pain. Given this persistent pain despite imaging and completing a course of physical therapy patient would benefit from a consult with Dr. Pedro 07/19/2023 Mixed conductive and sensorineural hearing loss, bilateral (ICD-10 - H90.6) Stable and patient declined wanting to restart speech therapy at this time. 07/19/2023 Bipolar disorder, current episode mixed, mild (ICD-10 - F31.61) Stable on current medication regimen per patient. Patient to continue working with mental health providers and prescribers to manage his underlying bipolar disorder He is seeing his therapist on 07/26/23 and patient to ensure he is seen by his psychiatrist as scheduled for proper management of his bipolar 09/29/2023 Mixed conductive and sensorineural hearing loss, bilateral (ICD-10 - H90.6) Stable at present time 04/27/2024 Bipolar disorder, current episode mixed, mild (ICD-10 - F31.61) Patient was recently evaluated by a psychiatrist and had medication adjustments made due to increased visual and auditory hallucinations. Patient states he feels safe and well supported with his mental health providers and he continues to take his medications as prescribed 02/03/2024 Bilateral primary osteoarthritis of knee (ICD-10 - M17.0) Patient continues to have pain in both knees related to osteoarthritis, that is worse during cold weather. Patient was evaluated by orthopedic providers through [facility] but there was no interventions discussed with patient. Patient has also not been able to refill diclofenac as his insurance carrier will not cover this. Patient is requesting an up dated referral for second opinion given his persistent knee pain due to OA. 04/27/2024 Paranoid schizophrenia (ICD-10 - F20.0) See plan above.Patient to continue following up with his therapist and mental health prescriber as scheduled and remain on current medication regimen 09/29/2023 Bipolar disorder, current episode mixed, mild (ICD-10 - F31.61) Stable on current medication regimen per patient. Patient to continue working with his mental health providers and prescribers to manage his underlying bipolar disorder 02/03/2024 Bipolar disorder, current episode mixed, mild (ICD-10 - F31.61) Stable on current medication regimen per patient. Patient to continue working with his mental health providers and prescribers to manage his underlying bipolar disorder 07/19/2023 Paranoid schizophrenia (ICD-10 - F20.0) Stable and patient feels well controlled on his current medication regimen. Patient to continue following up with his therapist and mental health provider/prescrib er as scheduled 07/19/2023 Bilateral primary osteoarthritis of knee (ICD-10 - M17.0) Stable and patient states he has felt much improvement in his knee pain since beginning topical diclofenac and Motrin use. Patient to follow-up should he have any new or worsening symptoms of concern 09/29/2023 Paranoid schizophrenia (ICD-10 - F20.0) Stable and patient feels well controlled on his current medication regimen. Patient to continue following up with his therapist and mental health provider/prescrib er as scheduled 04/27/2024 Alpha thalassemia (ICD-10 - D56.0) Patient with a history of alpha thalassemia 02/03/2024 Paranoid schizophrenia (ICD-10 - F20.0) Stable and patient feels well controlled on his current medication regimen. Patient to continue following up with his therapist and mental health provider/prescrib er as scheduled 04/27/2024 Tinea unguium (ICD-10 - B35.1) Reviewed with patient that his right toenail fungal infection does appear to be improving. Patient to remain on terbinafine and will obtain lab work to reassess his liver function given this treatment. Plan will be for follow-up in 4 months and we will reassess if patient needs continued treatment with terbinafine 02/03/2024 Erectile dysfunction due to arterial insufficiency (ICD-10 - N52.01) Patient shared concerns of erectile dysfunction. Suspect that this may be due to patient's underlying psychiatric medications. Will begin a short course of Cialis and patient to notify the office should he feel as though this is assisting in his concerns of ED 02/03/2024 Alpha thalassemia (ICD-10 - D56.0) Patient with a history of alpha thalassemia. Will continue to monitor for underlying anemia 02/03/2024 Tinea unguium (ICD-10 - B35.1) Will begin terbinafine for right great toe fungal infection in the toenail. Patient to follow-up in 3 months to reassess and obtain updated comprehensive panel to assess liver function given this treatment 02/03/2024 Vitamin D deficiency, unspecified (ICD-10 - E55.9) Will check level to verify that there is no deficiency 02/03/2024 Encounter for screening for malignant neoplasm of colon (ICD-10 - Z12.11) Up-to-date on colon cancer screening. Due to findings of colonic polyps will have a repeat in 202402/03/2024 Encounter for screening mammogram for malignant neoplasm of breast (ICD-10 - Z12.31) 02/03/2024 Encounter for screening for osteoporosis (ICD-10 - Z13.820) 02/03/2024 Encounter for screening for cardiovascular disorders (ICD-10 - Z13.6) Blood pressure stable. Will check for comorbidity of hyperlipidemia and hyperglycemia to further assess risk 02/03/2024 Encounter for immunization (ICD-10 - Z23) Vaccines up-to-date. Patient to consider receiving his flu vaccine at his local pharmacy 02/03/2024 Encounter for antibody response examination (ICD-10 - Z01.84) Titers have been checked in the past and there is immunity to rubeola 02/03/2024 Encounter for screening for other viral diseases (ICD-10 - Z11.59) Will screen for hepatitis C as per general recommendation 02/03/2024 Encounter for screening examination for other mental health and behavioral disorders (ICD-10 - Z13.39) PHQ score reviewed no further interventions warranted at this time 09/29/2023 Other Provided jerrod carbone with contact information for [facility] eye care ([facility]) and encouraged patient to reach out to this provider to see if his insurance is excepted 02/03/2024 Other Plan Of Treatment Pending Test Test Name Order Date COMPLETE CBC WITH DIFF 05/11/2023 COLONOSCOPY 12/14/2022 PERIPHERAL BLOOD SMEAR REVIEW 05/11/2023 Next Appt Details Provider Name:Humza Ham , 08/31/2024 10:00:00 AM, [address] [place] [address], [address], [phone], Provider Name:Humza Ham , 2025 10:30:00 AM, [address] [place] [address], [place] [address], [place], [place], [phone], Insurance Providers Payer Name Payer Address Payer Phone Subscriber Number Group Number Insured Name Patient Relationship to Insured Coverage Start Date Coverage End Date [employer] MEDICARE [address] [address] [place] [phone] [id number] Grant King Self - patient is the insured Medical (General) History Medical History History ICD Code Hyperlipidemia Sleep disturbances Bipolar Anxiety Schizophrenia hearing loss - since 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
--- OUTSIDE RECORDS SUMMARY | 2024-06-29 17:32 | XMS_ITS ---
Author Organization Cathy Argueta MD Address [address] [place] [phone] Care Team Providers Care Reconnaissance Crewmember Name Role Phone Joelle Schrader Primary Care Provider [phone] REASON FOR VISIT SV pain management Encounters Encounter Location Date Provider Diagnosis Cathy Argueta MD [address] [place] [address] [place] [phone] 05/04/2024 Joelle Schrader Plan Of Treatment Next Appt Details Provider Name:Joelle Schrader , 08/31/2024 10:00:00 AM, [address] [place] [address], [phone], Provider Name:Joelle Schrader , 2025 10:30:00 AM, [address] [place] [address], [phone], Progress Notes * Grant CLINTONDOB: [birth year] (54 yo M)Acc No.[id number]:05/04/2024 Patient:?Grant CLINTON :1970???Age:54 Y???Sex:Male Address:[address] [place] [id number] * true * Date:? Generated for Peg copeland/Vaibhav/eTransmitting on:?06/29/2024 05:32 PM EDT
--- OUTSIDE RECORDS SUMMARY | 2024-06-29 17:33 | XMS_ITS | Clinical Summary ---
Author Organization [facility] Address [address] [place] [address] Phone Care Team Providers Care Association Executive Name Role Phone Cathy Argueta MD Primary Care Provider [phone] Social History Tobacco Use Types Packs/Day Years Used Date Smoking Tobacco: Never Smokeless Tobacco: Never Alcohol Use Standard Drinks/Week Comments Never 0 (1 standard drink = 0.6 oz pur e alcohol) Sex and Gender Information Value Date Recorded Sex Assigned at Not on file Legal Sex Male 4:37 AM EST Gender Identity Not on file Sexual Orientation Not on file Obstetrics History Last Filed Vital Signs Vital Sign Reading Time Taken Comments Blood Pressure 130/78 02/18/2022 1:43 PM EST Cuf f Pulse 98 02/18/2022 1:43 PM EST Temperature - - Respiratory Rate - - Oxygen Saturation - - Inhaled Oxygen Concentration - - Weight 93 kg (205 lb) 02/18/2022 1:43 PM EST Height 175.3 cm (5' 9 ) 02/18/2022 1:43 PM EST Body Mass Index 30.27 02/18/2022 1:43 PM EST Plan of Treatment Upcoming Encounters Date Type Department Care Team (Late st Contact Info) Description 07/19/2024 2:30 PM EDT Consult Orthopedic Surgery - [place] [address] [phone] Lesly Elmore NP [address] [address] Health Maintenance Due Date Last Done Comments DTaP,Tdap,and Td Vaccines (1 - Tdap) 02/08/1988 Hepatitis B Vaccines (1 of 3 - 19+ 3-dose series) 02/08/1988 Pneumococcal Vaccine: 50+ Ye ars (1 of 1 - PCV) 2019 Zoster Vaccines (1 of 2) 2019 Cholesterol Screening (Lipid Panel) 02/15/2022 Colorectal Cancer Screening: Colonoscopy 02/15/2022 Depression Screening 02/15/2022 HIV Screening 02/15/2022 Hepatitis C Screening 02/15/2022 Medicare Annual Wellness Visit 02/15/2022 Social Influencers of Health Screening 02/15/2022 COVID-19 Vaccine (1 - 2023-2 5 season) 2023 Influenza Vaccine (Season Ended) 2024 HIB Vaccines Aged Out No longer eligi ble based on patient's age to complete this topic HPV Vaccines Aged Out No longer eligi ble based on patient's age to complete this topic Hepatitis A Vaccines Aged Out No long er eligible based on patient's age to complete this topic IPV Vaccines Aged Out No longer eligi ble based on patient's age to complete this topic MMR Vaccines Aged Out No longer eligi ble based on patient's age to complete this topic Meningococcal ACWY Vaccine Aged Out N o longer eligible based on patient's age to complete this topic Meningococcal B Vaccine Aged Out No l onger eligible based on patient's age to complete this topic Pneumococcal Vaccine: Pediat rics (0 to 5 Years) and At-Risk Patients (6 to 64 Years) Aged Out No longer eligible b ased on patient's age to complete this topic RSV Immunization Patients Un amarjit 20 months Aged Out No longer eligible b ased on patient's age to complete this topic Varicella Vaccines Aged Out No longer eligible based on patient's age to complete this topic [place] [address] [place] [address] MEDICARE [place] [id number] Care Teams Association Executive Relationship Specialty Start Date End Date Ctahy Argueta MD [address] [place] [address] PCP - General Internal Medicine 06/07/24
--- OUTSIDE RECORDS SUMMARY | 2024-06-29 17:33 | XMS_ITS ---
Author Organization [facility] Address [address] [place] [phone] Care Team Providers Care Aircraft Tool Maker Name Role Phone Joelle Schrader Primary Care Provider [phone] REASON FOR VISIT pain mng referral update Encounters Encounter Location Date Provider Diagnosis Cathy Argueta MD [address] [place] [address] [place] [phone] 06/13/2024 Joelle Schrader Plan Of Treatment Next Appt Details Provider Name:Joelle Schrader , 08/31/2024 10:00:00 AM, [address] [place] [address], [phone], Provider Name:Joelle Schrader , 2025 10:30:00 AM, [address] [place] [address], [phone], Progress Notes * Grant CLINTONDOB: [birth year] (54 yo M)Acc No.[id number]:06/13/2024 Patient:?Grant CLINTON :1970???Age:54 Y???Sex:Male Address:[address] [place] [id number] * true * Date:? Generated for Raegani dinorah/Fajessicag/eTransmitting on:?06/29/2024 05:32 PM EDT
== END 2024-06-29 15:04 | disposition home or self-care (01) ==
LOC: HO.PMC 14:29
PROVIDERS: PCP Internal Medicine; Visit Provider Nurse Practitioner Family
DX: M25.552 Pain in left hip (principal); M54.50 Low back pain, unspecified; G89.29 Other chronic pain; M25.561 Pain in right knee; M25.562 Pain in left knee; M17.0 Bilateral primary osteoarthritis of knee; M53.3 Sacrococcygeal disorders, not elsewhere classified
CPT/HCPCS: 99204

== ENCOUNTER → 2024-06-29 14:29 | Outpatient (BNVA) | payer MEDICARE, SELFPAY | PROVIDERS: PCP Internal Medicine; Visit Provider Nurse Practitioner Family | DX: M25.552 Pain in left hip (principal); M54.42 Lumbago with sciatica, left side; G89.29 Other chronic pain; M17.0 Bilateral primary osteoarthritis of knee; M53.3 Sacrococcygeal disorders, not elsewhere classified | CPT/HCPCS: 99202 ==

== ENCOUNTER 2024-07-04 10:29 | Outpatient (REF) | payer MEDICARE, SELFPAY ==
--- NOTE | ~2024-07-04 | XR_ITS ---
CLINICAL HISTORY: M25.561 - Pain in right knee Exam: AP, lateral, and sunrise views of the left knee. Comparison: None. Findings: Please note that the clinical indication for this study is ???pain in right knee. however, the images are left knee radiographs. Clinical correlation advised. Borderline patella rich. Bony alignment is otherwise anatomic. No acute fracture. Mild degenerative change of the patellofemoral joint. Enthesopathic change of the superior aspect of the patella at the expected insertion of the quadriceps tendon. No joint effusion. Impression: 1. Potential right/left discrepancy as discussed above. Clinical correlation advised. 2. Borderline patella rich with mild patellofemoral joint DJD. This document has been electronically signed by: Varun Valdes MD on 07/06/2024 05:08:52
--- NOTE | ~2024-07-04 | XR_ITS ---
CLINICAL HISTORY: M54.50 - Low back pain, unspecified 5 views lumbar spine Comparison: None Findings: Normal alignment. No acute fractures or dislocation. There are multilevel degenerative changes. There are multilevel lumbar spine osteophytes. There is multilevel facet sclerosis. There is mild lumbar spine dextroscoliosis. There are mild degenerative changes of the SI joints. IMPRESSION: Multilevel spondylosis, no acute fractures This document has been electronically signed by: Lorenzo James MD on 07/06/2024 08:44:33
--- NOTE | ~2024-07-04 | XR_ITS ---
CLINICAL HISTORY: M25.552 - Pain in left hip Exam: AP pelvis with AP and frog-leg lateral views of the left hip. Comparison: None. Findings: Bony alignment of the hip joints is anatomic. No fracture or erosion. Mild bilateral hip DJD. Sacroiliac joints and pubic symphysis are unremarkable. Impression: Mild degenerative change without acute finding. This document has been electronically signed by: Varun Valdes MD on 07/06/2024 06:50:38
--- OUTSIDE RECORDS SUMMARY | 2024-07-04 12:18 | XMS_ITS ---
Author Organization Cathy Argueta MD Address [address] [place] [phone] Care Team Providers Care Ops Manager Name Role Phone Joelle Schrader Primary Care Provider REASON FOR VISIT pain referral Encounters Encounter Location Date Provider Diagnosis Cathy Argueta MD [address] [place] [address] [place] [phone] 05/04/2024 Joelle Schrader Plan Of Treatment Next Appt Details Provider Name:Joelle Schrader , 08/31/2024 10:00:00 AM, [address] [place] [address], [phone], Provider Name:Joelle Schrader , 2025 10:30:00 AM, [address] [place] [address], [phone], Progress Notes * Grant CLINTONDOB: [birth year] (54 yo M)Acc No.[id number]:05/04/2024 Patient:?Grant CLINTON :1970???Age:54 Y???Sex:Male Address:[address] [place] [id number] * true * Date:? Generated for Peg copeland/Vaibhav/eTransmitting on:?07/04/2024 12:18 PM EDT
--- OUTSIDE RECORDS SUMMARY | 2024-07-04 12:19 | XMS_ITS ---
Author Organization [facility] Address [address] [place] [phone] Care Team Providers Care Medical Office Worker Name Role Phone Joelle Schrader Primary Care Provider REASON FOR VISIT pain mng referral update Encounters Encounter Location Date Provider Diagnosis Cathy Argueta MD [address] [place] [address] [place] [phone] 06/13/2024 Joelle Schrader Plan Of Treatment Next Appt Details Provider Name:Joelle Schrader , 08/31/2024 10:00:00 AM, [address] [place] [address], [phone], Provider Name:Joelle Schrader , 2025 10:30:00 AM, [address] [place] [address], [phone], Progress Notes * Grant CLINTONDOB: [birth year] (54 yo M)Acc No.[id number]:06/13/2024 Patient:?Grant CLINTON :1970???Age:54 Y???Sex:Male Address:[address] [place] [phone] * true * Date:? Generated for Printi ng/Fajessicag/eTransmitting on:?07/04/2024 12:19 PM EDT
--- OUTSIDE RECORDS SUMMARY | 2024-07-04 12:19 | XMS_ITS | Patient Health Record ---
Author Organization [facility] Address [address] [facility] [address] [place] [address] [id number] Care Team Providers Care Duplex Trimmer Name Role Phone SchraderHumza Primary Care Provider Allergies No Known Allergies Results Component Value Reference Range Notes CBC With Differential/Platel et-[id number] Reviewed date:02/06/2024 06:37:26 PM Interpretation: Performing Lab:[facility], [address] [place] [address], [place], Phone - [phone], Director - Jose Notes/Report: Clinical Information:SRC: WBC 6.8 3.4-10.8 x10E3/uL Effective February 14, 2024 profile [id number] WBC will be made non-orderable as a [...] % Immature Grans (Abs) 0.0 0.0-0.1 x10E3/uL Vitamin D, 84-Cocsale-[id number] Reviewed date:02/06/2024 06:37:26 PM Interpretation: Performing Lab:[address], Phone - [phone], Director - Jose Notes/Report: Clinical Information:SRC: Vitamin D, 25-Hydroxy 20.9 30.0-100.0 ng/mL Vitamin D deficiency has been defined by the Chemult of Medicine and an Endocrine Society practice guideline as a level of serum 25-OH vitamin D less than 20 ng/mL (1,2). The Endocrine Society went on to further define vitamin D insufficiency as a level between 21 and 29 ng/mL (2). 1. IOM (Chemult of Medicine). 2010. Dietary reference intakes for calcium and D. [place]: The National Academies Press. 2. Miguelina MF, Wang CHIN, Ashley COX, et al. Evaluation, treatment, and prevention of vitamin D deficiency: an Endocrine Society clinical practice guideline. JCEM. 2010; 96(7):1911-30. HCV Antibody RFX to Quant PC [id number] Reviewed date:02/06/2024 06:37:26 PM Interpretation: Performing Lab:[address], Phone - [phone], Director - Jose Notes/Report: Clinical Information:SRC: Clinical Information:SRC: HCV Ab Non Reactive Non Reactive Interpretation: Not infected with HCV unless early or acute infection is suspected (which may be delayed in an immunocompromised individual), or other evidence exists to indicate HCV infection. Comp. Metabolic Panel (14)-3 [id number] Reviewed date:02/06/2024 06:37:26 PM Interpretation: Performing Lab:[address], Phone - [phone], Director - Jose Notes/Report: Clinical Information:SRC: Glucose [...] IU/L ALT (SGPT) 33 0-44 IU/L LP+Non-HDL Cholesterol-64676 5 Reviewed date:02/06/2024 06:37:26 PM Interpretation: Performing Lab:[facility] [place], [address] [facility], Phone - [phone], Director - Jose Notes/Report: Clinical Information:SRC: Cholesterol, Total 128 100-199 mg/dL Triglycerides 152 0-149 mg/dL HDL Cholesterol 36 >39 mg/dL VLDL Cholesterol Titus 26 5-40 mg/dL LDL Chol Calc ([facility]) 66 0-99 mg/dL Non-HDL Cholesterol 92 0-129 mg/dL UA/M w/rflx Culture, Routine -[id number] Reviewed date:02/06/2024 06:37:26 PM Interpretation: Performing Lab:[facility] [place], [address] [facility], [place], Phone - [phone], Director - Jose Notes/Report: Clinical Information:SRC: Clinical Information:SRC: Specific [place] 1.020 1.005-1.030 pH 6.0 5.0-7.5 Urine-Color Yellow [...] None seen None seen/Few CBC With Differential/Platel et-[id number] Reviewed date:04/30/2024 07:45:57 PM Interpretation: Performing Lab:[facility] [place], [address] [facility], Phone - [phone], Director - Jose Notes/Report: Clinical Information:SRC: WBC [...] 0.0 0.0-0.1 x10E3/uL Comp. Metabolic Panel (14)-3 [id number] Reviewed date:04/30/2024 07:45:57 PM Interpretation: Performing Lab[facility], [address] [facility], [place], Phone - [phone], Director - Jose Notes/Report: Clinical Information:SRC: Glucose [...] IU/L ALT (SGPT) 30 0-44 IU/L LP+Non-HDL Cholesterol-64805 5 Reviewed date:04/30/2024 07:45:57 PM Interpretation: Performing Lab:[facility], [address] [place] [address], Phone - [phone], Director - MDJodry Notes/Report: Clinical Information:SRC: Cholesterol, Total 112 100-199 mg/dL Triglycerides 111 0-149 mg/dL HDL Cholesterol 37 >39 mg/dL VLDL Cholesterol Titus 20 5-40 mg/dL LDL Chol Calc (NIH) 55 0-99 mg/dL Non-HDL Cholesterol 75 0-129 mg/dL CBC With Differential/Platel et-[id number] Reviewed date:07/21/2023 04:28:08 PM Interpretation: Performing Lab:[facility], [address] [place] [address], Phone - [phone], Director - MDJodry Notes/Report: Clinical Information:SRC: WBC 6.6 3.4-10.8 x10E3/uL [...] (14)-3 Reviewed date:07/21/2023 04:28:08 PM Interpretation: Performing [facility], [address] [facility], Phone - [phone], Director - Jose Notes/Report: Clinical Information:SRC: Glucose [...] IU/L ALT (SGPT) 27 0-44 IU/L LP+Non-HDL Cholesterol-84506 5 Reviewed date:07/21/2023 04:28:08 PM Interpretation: Performing Lab:[facility], [address] [facility], [place], Phone - [phone], Director - Jose Notes/Report: Clinical Information:SRC: Cholesterol, Total 163 100-199 mg/dL Triglycerides 179 0-149 mg/dL HDL Cholesterol 42 >39 mg/dL VLDL Cholesterol Titus 31 5-40 mg/dL LDL Chol Calc (NIH) 90 0-99 mg/dL Non-HDL Cholesterol 121 0-129 mg/dL PDF Report Reviewed date:07/21/2023 04:28:08 PM Interpretation: Performing Lab:[facility], [address], [place], Phone - [phone], Director - Jose Notes/Report: Clinical Information:SRC: CR Lumbar Spine Minimum 4 Vw s Reviewed date:07/20/2023 04:02:02 PM Interpretation: Performing Lab: Notes/Report: MR Lumbar Spine WO Reviewed date:10/12/2023 06:56:22 PM Interpretation: Performing Lab: Notes/Report: Original Ordering Provider: HUMZA SCHRADER [facility] Reason For Referral Reason Pt with OA both knee s and would benefit from ortho consult , Any available provider, Needs a Tool Tender faxed Diagnosis 1 Bilateral primary os teoarthritis of knee (M17.0) Referral Organization [facility] Referring Provider First Name Humza Referring Provider Last Name Macrina Referring Provider Speciality Nurse Guanakito mendiola Referred Provider Mackenzie Cabezas Referred Provider Specialty Orthopedic S urgery General Notes Jessica MARIE 09/12 12:16:00 PM >[facility] referral form faxedCYNTHIA Giselle 04/27/2024 10:20:37 AM >Patient states not hearing from referral, but patient needs cream maker. Will refax referral and follow up for appt., Jessica MARIE 05/18/2024 10:34:13 AM >Updating referral, sending to Dr. Cabezas office Referral Priority Routine Reason lumbar pain with rad iating pain down left leg - MRI was without significant findings. 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 Wrote down the appt and address for patient. Notified him to bring partner since they do not have a it application architect in the office., Humza Schrader 05/08/2024 12:31:11 PM EST > We can refer pt to [facility], as long as his insurance is in network there, Jessica MARIE 05/08/2024 12:51:27 PM >Patient needs local provider since he takes public transportation. Will fax to [facility], Jessica MARIE 05/09/2024 03:20:18 PM >Completed [facility] form and faxed, Jessica MARIE 06/13/2024 09:17:23 AM >[facility] does not take patients insurance, TE to provider, Jessica MARIE 06/13/2024 02:31:41 PM >Updating referral to [facility] Referral Priority Routine Medications Medication SIG (Take, Route, Frequency, Duration) Notes Start Date End Date Status Citalopram Hydrobromide 40 MG 1 tablet Orally Once a day for 30 days Active Rosuvastatin Calcium 20 MG TOME 1 TABLET A POR VIA ORAL TODOS [place] AL ACOSTARSE FOR 90 DAYS for 90 Active Zolpidem Tartrate 10 MG 1 tablet [...] Once a day for 30 day(s) Active Diclofenac Sodium 1 % APPLY TOPICALLY TO AFFECTED AREA ONCE DAILY EXTERNALLY DAILY 90 DAYS for 90 Active Citalopram Hydrobromide 20 MG 1 tablet Orally Once a day for 30 day(s) Active clonazePAM 1 MG 1 tablet Orally Once a day Active Benztropine Mesylate 1 MG 1 tablet Orall y Once a day for 30 day(s) Active Vitamin D3 50 MCG (1999 UT) 2 tablets Orally Once a day for 90 days 02/06/2024 01/31/2025 Active QUEtiapine Fumarate 400 MG 1 tablet at b edtime Orally Once a day for 30 days Active cloNIDine 0.1 MG/24HR 1 patch to skin Transdermal Active guanFACINE HCl 1 MG 1 tablet at bedtime Orally Once a day for 30 day(s) Active Immunizations Vaccine Route Administration Date Status Comme nts [id number] Vaccine Unknown 07/06/2020 Administere d [id number]-[id number] Vaccine Unknown 08/05/2020 Administere d *Tdap Unknown 08/05/2017 Administered *Shingrix Unknown 01/14/2021 Administered *Shingrix Unknown 05/12/2021 Administered Pneumococcal polysaccharide PPV23 Unknown 08/05/2017 Ad ministered Social History Tobacco Use: Social History Observation Description Date Details (start date - stop date) Never Smoker NA - NA Tobacco Use/Smoking Question Answer Notes Are you a nonsmoker Tobacco use other than smoking: Question Answer Notes Are you an other tobacco user? No Problems Problem Type SNOMED Code ICD Code Onset Dates Problem Status W/U Status Risk Notes Problem Alpha thalassemia (40196887) Alpha thalassemia (D56.0) Active confirmed Problem Vitamin D deficiency (95734211) Vitamin D deficiency, unspecified (E55.9) Active confirmed Problem Mixed hyperlipidemia (623807881) Mixed hyperlipidemia (E78.2) Active confirmed Problem Paranoid schizophrenia (70887793) Paranoid schizophrenia (F20.0) Active confirmed Problem Mixed bipolar affective disorder, mild (782254045) Bipolar disorder, current episode mixed, mild (F31.61) Active confirmed Problem Mixed conductive and sensorineural hearing loss, bilateral (738550873) Mixed conductive and sensorineural hearing loss, 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) Active confirmed Problem Osteoarthritis of knee (778085539) Bilateral primary osteoarthritis of knee (M17.0) Active confirmed Problem Sciatica (18596878) Lumbago with sciatica, left side (M54.42) Active confirmed Problem Erectile dysfunction co-occurrent and due to arterial insufficiency (disorder) (033370062052854) Erectile dysfunction due to arterial insufficiency (N52.01) Active confirmed Vital Signs Heart Rate 104 /min 04/27/2024 Temperature 96.3 degrees Fahrenheit 04/27/2024 Blood pressure diastolic 68 mm Hg 04/27/2024 Oximetry 96 % 04/27/2024 Height 5 ft 9 in in 04/27/2024 Blood pressure systolic 112 mm Hg 04/27/2024 Weight 206 lbs 04/27/2024 BMI 30.42 kg/m2 04/27/2024 Encounters Encounter Location Date Provider Diagnosis [facility]gu[facility] MD [address] [id number] 07/19/2023 Hmuza Schrader Lumbago with sciatic a, left side M54.42 ; Mixed hyperlipidemia E78.2 ; Mixed conductive and sensorineural hearing loss, bilateral H90.6 ; Bipolar disorder, current episode mixed, mild F31.61 ; Paranoid schizophrenia F20.0 and Bilateral primary osteoarthritis of knee M17.0 Cathy [facility]gu[facility] MD [address] [id number] 09/29/2023 Humza Schrader Bilateral primary osteoarthritis of knee M17.0 ; Lumbago with sciatica, left side M54.42 ; Mixed hyperlipidemia E78.2 ; Mixed conductive and sensorineural hearing loss, bilateral H90.6 ; Bipolar disorder, current episode mixed, mild F31.61 and Paranoid schizophrenia F20.0 Cathy Argueta MD [address] [id number] 02/03/2024 Humza Schrader Encounter for genera l adult medical examination [...] and behavioral disorders Z13.39 Cathy [facility]eta MD [address] [id number] 04/27/2024 Humza Schrader Mixed hyperlipidemia E78.2 ; Mixed conductive and sensorineural hearing loss, bilateral H90.6 ; Lumbago with sciatica, left side M54.42 ; Bilateral primary osteoarthritis of knee M17.0 ; Bipolar disorder, current episode mixed, mild F31.61 ; Paranoid schizophrenia F20.0 ; Alpha thalassemia D56.0 and Tinea unguium B35.1 Cathy Argueta MD [address] [id number] 07/20/2023 Humza Argueta MD [address] [id number] 07/21/2023 Humza Schrader Mixed hyperlipidemia E78.2 Cathy [facility] MD [address] [id number] 10/04/2023 Humza Argueta MD [address] [id number] 11/22/2023 Humza Argueta MD [address] [id number] 01/10/2024 Humza Schrader Mixed hyperlipidemia E78.2 [facility] [address] [id number] 02/04/2024 Humza Argueta MD [address] [id number] 02/06/2024 Humza Schrader Vitamin D deficiency , unspecified E55.9 [facility] MD [address] [id number] 05/04/2024 Humza Argueta MD [address] [id number] 05/04/2024 Humza Argueta MD [address] [id number] 06/13/2024 Humza Schrader Assessments Encounter Date Diagnosis (ICD Code) Assessment Notes Treatment Notes Treatment Clinical Notes Section Notes 07/19/2023 Lumbago with sciatica, left side (ICD-10 [...] determine if any additional imaging is warranted 07/21/2023 Mixed hyperlipidemia (ICD-10 - E78.2) 09/29/2023 Bilateral primary osteoarthritis of knee (ICD-10 - M17.0) Patient continues to have pain in both knees related to osteoarthritis. Patient has felt improvement with topical diclofenac and Motrin use but states the pain has not fully resolved. Patient agreeable to be seen by orthopedics to discuss interventions such as injections versus surgery and total knee replacements given progressive OA and persistent pain 01/10/2024 Mixed hyperlipidemia (ICD-10 - E78.2) 02/03/2024 Mixed hyperlipidemia (ICD-10 - E78.2) Stable and LDL well controlled with last lab draw. Patient to remain on current statin therapy. Will obtain an updated lipid panel to ensure adequate LDL control 02/03/2024 Encounter for general adult medical examination without abnormal findings (ICD-10 - Z00.00) General healthcare up-to-date. Will obtain updated routine labs.Plan will be for annual in 1 year 02/06/2024 Vitamin D deficiency, unspecified (ICD-10 - E55.9) 04/27/2024 Mixed hyperlipidemia (ICD-10 - E78.2) Stable [...] proper management of his persistent back pain 02/03/2024 Mixed conductive and sensorineural hearing loss, bilateral (ICD-10 - H90.6) Stable at present time 09/29/2023 Lumbago with sciatica, left side (ICD-10 [...] underlying stenosis. Patient agreeable with this plan 07/19/2023 Mixed hyperlipidemia (ICD-10 - E78.2) Patient to remain on current statin therapy and will obtain an updated lipid panel to ensure adequate control 07/19/2023 Mixed conductive and sensorineural hearing loss, bilateral (ICD-10 - H90.6) Stable and patient declined wanting to restart speech therapy at this time. 09/29/2023 Mixed hyperlipidemia (ICD-10 - E78.2) Stable [...] benefit from a consult with Dr. Pedro 04/27/2024 Bilateral primary osteoarthritis of knee (ICD-10 - M17.0) Patient continues to have pain in both knees related to osteoarthritis, that is worse during cold weather. Patient admits to not scheduling a visit with the orthopedic office as previously referred. Patient agreeable to have our office contact orthopedic provider to schedule a visit for him given his language barrier 04/27/2024 Bipolar disorder, current episode mixed, mild [...] Patient was evaluated by orthopedic providers through [facility] but there was no interventions discussed with patient. Patient has also not been able to refill diclofenac as his insurance carrier will not cover this. Patient is requesting an up dated referral for second opinion given his persistent knee pain due to OA. 07/19/2023 Bipolar disorder, current episode mixed, mild [...] (ICD-10 - H90.6) Stable at present time 07/19/2023 Paranoid schizophrenia (ICD-10 - F20.0) Stable and patient feels well controlled on his current medication regimen. Patient to continue following up with his therapist and mental health provider/prescrib er as scheduled 02/03/2024 Bipolar disorder, current episode mixed, mild (ICD-10 - F31.61) Stable on current medication regimen per patient. Patient to continue working with his mental health providers and prescribers to manage his underlying bipolar disorder 09/29/2023 Bipolar disorder, current episode mixed, mild (ICD-10 - F31.61) Stable on current medication regimen per patient. Patient to continue working with his mental health providers and prescribers to manage his underlying bipolar disorder 04/27/2024 Paranoid schizophrenia (ICD-10 - F20.0) See plan above.Patient to continue following up with his therapist and mental health prescriber as scheduled and remain on current medication regimen 09/29/2023 Paranoid schizophrenia (ICD-10 - F20.0) Stable and patient feels well controlled on his current medication regimen. Patient to continue following up with his therapist and mental health provider/prescrib er as scheduled 02/03/2024 Paranoid schizophrenia (ICD-10 - F20.0) Stable and patient feels well controlled on his current medication regimen. Patient to continue following up with his therapist and mental health provider/prescrib er as scheduled 04/27/2024 Alpha thalassemia (ICD-10 - D56.0) Patient with a history of alpha thalassemia 07/19/2023 Bilateral primary osteoarthritis of knee (ICD-10 - M17.0) Stable and patient states he has felt much improvement in his knee pain since beginning topical diclofenac and Motrin use. Patient to follow-up should he have any new or worsening symptoms of concern 04/27/2024 Tinea unguium (ICD-10 - B35.1) Reviewed [...] Provided jerrod carbone with contact information for [facility] ([facility]) and encouraged patient to reach out to this provider to see if his insurance is excepted 02/03/2024 Other Plan Of Treatment Pending Test Test Name Order Date COMPLETE CBC WITH DIFF 05/11/2023 COLONOSCOPY 12/14/2022 PERIPHERAL BLOOD SMEAR REVIEW 05/11/2023 Next Appt Details Provider Name:Humza Schrader , 08/31/2024 10:00:00 AM, [address] [place] [address], [phone], Provider Name:Humza Schrader , 2025 10:30:00 AM, [address] [place] [address], [address], [phone], Insurance Providers Payer Name Payer Address Payer Phone Subscriber Number Group Number Insured Name Patient Relationship to Insured Coverage Start Date Coverage End Date [employer] [address] [address] [place] [phone] [id number] Grant King Self - patient is the insured Medical (General) History Medical History History ICD Code Hyperlipidemia Sleep disturbances Bipolar Anxiety Schizophrenia hearing loss - since 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
--- OUTSIDE RECORDS SUMMARY | 2024-07-04 12:19 | XMS_ITS | Clinical Summary ---
Author Organization [facility] Address [address] [place] [address] Care Team Providers Care Paper Spooler Name Role Phone Bandar Goode SENIOR TALENT ACQUISITION SPECIALIST Primary Care Provider [phone] Source Comments PLEASE NOTE, if this patient [...] Overview (11/24/2016): Refuses shots Alcoholism in remission ([facility]) 06/30/2016 Pterygium eye 03/25/2015 Anxiety and depression 10/04/2014 Overview (01/27/2022): Jan 2022: [facility] is provider 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 Overview (10/04/2014): Since a kid Never had therapy Applying for disab and got appt with a speech therapist in [place] Immunizations Immunization Administration Dates Next Due Moderna [...] 06/01/2022, 12/01/2021 Dental Prophy 06/04/2023 06/01/2022, 12/01/2021 [id number] ( season) 2023 08/05/2020, 07/06/2020, 07/06/2020 Alcohol [...] EST) FECAL GLOBIN BY IMMUNOCHEMISTRY See Note [facility] Comment: ??FECAL GLOBIN BY IMMUNOCHEMISTRY ?Micro Number: ?[id number] ??Test Status: ? Final ??Specimen Source: ?? Insure (tm) fobt test card ??Specimen Quality: ??Adequate ??Fecal Globin: ?Not Detected ??Comment: ? Test results may be invalid as no date of ? collection was provided. Specimens are stable ? for 14 days. Stool Stool specimen / Unknown 01/27/2022 7:00 PM EST 01/30/2022 12:13 AM EST [facility] - NO BLOOD DRAW Final Result Performing Organization Address [facility] de Phone Number [address] [facility] [address] [address], [facility] [address] [address] * HEPATITIS C AB W/RFLX HCV RNA, QT, RT PCR (01/27/2022 10:20 AM EST) Pathologist [facility] HEPATITIS C ANTIBODY NON-REACT LOUIS NON-REACT LOUIS [address] [facility] SIGNAL TO CUT-OFF 0.07 <1.00 [employer] Comment: HCV antibody was non-reactive. There is no laboratory evidence of HCV infection. In most cases, no further action is required. However, if recent HCV exposure is suspected, a test for HCV RNA (test code 79846) is suggested. For additional information please refer to http://education.[employer]/faq/MLJ17r0 (This link is being provided for informational/ educational purposes only.) Blood Blood / Unknown 01/27/2022 1 0:20 AM EST 01/27/2022 10:21 AM EST [facility] - BLOOD DRAW Edited R esult - Final Performing Organization Address City/[facility]/ZIP Co de Phone Number [address] [facility] [address] [address], [address] [address] * HIV 1/2 AG & AB W/RFLX (4TH GEN) (01/27/2022 10:20 AM EST) HIV AG/AB, 4TH GEN NON-REAC TIVE NON-REAC TIVE [address] [facility] Comment: HIV-1 antigen and HIV-1/HIV-2 antibodies were [...] ?? For additional information please refer to http://education.[employer]/faq/UGT971 (This link is being provided for informational/ educational purposes only.) The performance of this assay has not been clinically validated in patients less than 2 years old. Blood Blood / Unknown 01/27/2022 1 0:20 AM EST 01/27/2022 10:21 AM EST Bandar [facility] LAB - BLOOD DRAW Final Re sult [facility] [address] [address], [facility] [address] [address] * (ABNORMAL) LIPID PANEL (01/27/2022 10:20 AM EST) CHOLESTEROL, TOTAL 142 <200 mg/dL [facility] HDL CHOLESTEROL 34(L) > OR = 40 mg/dL [facility] TRIGLYCERIDES 294(H) <150 mg/dL [facility] Comment: If a non-fasting specimen was collected, consider repeat triglyceride testing on a fasting specimen if clinically indicated. Gurjit et al. J. of Clin. Lipidol. 2015;9:129-169. LDL-CHOLESTEROL 73 99 mg/dL (calc) [facility] Comment: Reference range: <100 Desirable range <100 mg/dL for primary prevention; ?? <70 mg/dL for patients with CHD or diabetic patients with > or = 2 CHD risk factors. LDL-C is now calculated using the Annie calculation, which is a validated novel method providing better accuracy than the Friedewald equation in the estimation of LDL-C. Pee SS et al. TEO. 2013;310(19): 8601-2297 (http://education.[employer]/faq/NVC036) CHOL/HDLC RATIO 4.2 <5.0 (calc) [facility] NON-HDL CHOLESTEROL 108 <130 mg/dL (calc) [facility] Comment: For patients with diabetes plus 1 major ASCVD risk factor, treating to a non-HDL-C goal of <100 mg/dL (LDL-C of <70 mg/dL) is considered a therapeutic option. Blood Blood / Unknown 01/27/2022 1 0:20 AM EST 01/27/2022 10:21 AM EST Bandar Goode SENIOR TALENT ACQUISITION SPECIALIST LAB - BLOOD DRAW Final Re sult [facility] [address] [place] [address], [facility] [address] [place] [address],[place] [address] * (ABNORMAL) COMPREHENSIVE METABOLIC PANEL (01/27/2022 10:20 AM EST) GLUCOSE 107(H) 65 - 99 mg/dL [facility] Comment: ?Fasting reference interval For someone without known diabetes, a glucose value between 100 and 125 mg/dL is consistent with prediabetes and should be confirmed with a follow-up test. UREA NITROGEN (BUN) 16 7 - 25 mg/dL [facility] CREATININE (blood) 1.08 0.70 - 1.30 mg/dL [facility] EGFR 83 > OR = 60 mL/min/1 .73m2 [facility] Comment: The eGFR is based on the CKD-EPI 2020 equation. To calculate the new eGFR from a previous Creatinine or Cystatin C result, go to https://www.kidney.org/professionals/ kdoqi/gfr%5Fcalculator BUN/CREATININE RATIO NOT APPLICABLE 6 - 22 [facility] SODIUM 139 135 - 146 mmol/L [facility] POTASSIUM 4.1 3.5 - 5.3 mmol/L [facility] CHLORIDE 105 98 - 110 mmol/L [address] [facility] CARBON DIOXIDE 23 20 - 32 mmol/L [address] [facility] CALCIUM 10.0 8.6 - 10.3 mg/dL [address] [facility] PROTEIN, TOTAL 7.0 6.1 - 8.1 g/dL [address] [facility] ALBUMIN 4.3 3.6 - 5.1 g/dL [address] [facility] GLOBULIN 2.7 1.9 - 3.7 g/dL (calc) [address] [facility] ALBUMIN/GLOBUL IN RATIO 1.6 1.0 - 2.5 (calc) [address] [facility] BILIRUBIN, TOTAL 0.4 0.2 - 1.2 mg/dL [address] [facility] ALKALINE PHOSPHATASE 87 35 - 144 U/L [address] [facility] AST 20 10 - 35 U/L [address] [facility] ALT 21 9 - 46 U/L [address] [facility] Blood Blood / Unknown 01/27/2022 1 0:20 AM EST 01/27/2022 10:21 AM EST Bandar [facility] LAB - BLOOD DRAW Edited R esult - Final [address] [facility] [address] [address], [address] [facility] [address],[facility] [address] from Last 3 Months or Most Recently Relevant to Health Maintenance Insurance [employer]AL MEDICAID [facility] Care Teams Paper Spooler Relationship Specialty Start Date End Date Bandar Goode FNP [address] [place] [address] PCP - General Family Medicine, FUR DESIGNER 01/31/20
--- OUTSIDE RECORDS SUMMARY | 2024-07-04 12:19 | XMS_ITS | Clinical Summary ---
Author Organization [address] [facility] Address [address] [place] [address] Phone Care Team Providers Care Bottom Stop Attacher Name Role Phone Cathy Argueta MD Primary Care Provider [phone] Social History Tobacco Use Types Packs/Day Years [...] 2:30 PM EDT Consult Orthopedic Surgery - [place] [address] [phone] Lesly Elmore NP [address] [address] Health Maintenance Due Date Last Done Comments [...] patient's age to complete this topic [place] [place] [address] MEDICARE [place] [id number] Care Teams Bottom Stop Attacher Relationship Specialty Start Date End Date Cathy Argueta MD [address] [place] [address] PCP - General Internal Medicine 06/07/24
--- OUTSIDE RECORDS SUMMARY | 2024-07-04 12:19 | XMS_ITS ---
Author Organization Cathy Argueta MD Address [address] [place] [phone] Care Team Providers Care Blocker Polishing Name Role Phone Joelle Schrader Primary Care Provider REASON FOR VISIT SV pain management Encounters Encounter Location Date Provider Diagnosis Cathy Argueta MD [address] [place] [address] [place] [phone] 05/04/2024 Joelle Schrader Plan Of Treatment Next Appt Details Provider Name:Joelle Schrader , 08/31/2024 10:00:00 AM, [address] [place] [address], [phone], Provider Name:Joelle Schrader , 2025 10:30:00 AM, [address] [place] [address], [phone], Progress Notes * Grant CLINTONDOB: [birth year] (54 yo M)Acc No.[id number]:05/04/2024 Patient:?Grant CLINTON :1970???Age:54 Y???Sex:Male Address:[address] [place] [id number] * true * Date:? Generated for Peg copeland/Vaibhav/eTransmitting on:?07/04/2024 12:18 PM EDT
== END 2024-07-04 10:30 | disposition home or self-care (01) ==
LOC: HO.XRAY 10:29
PROVIDERS: PCP Internal Medicine; Visit Provider Nurse Practitioner Family
DX: M54.50 Low back pain, unspecified (principal); G89.29 Other chronic pain; M25.552 Pain in left hip; M25.562 Pain in left knee
CPT/HCPCS: 72110; 73502; 73562

== ENCOUNTER → 2024-07-04 10:37 | Outpatient (BNV) | payer MEDICARE, SELFPAY | PROVIDERS: PCP Internal Medicine; Visit Provider Radiology Diagnostic Radiology | DX: M47.816 Spondylosis without myelopathy or radiculopathy, lumbar region (principal); M25.552 Pain in left hip; M25.562 Pain in left knee | CPT/HCPCS: 72110; 73502; 73562 ==

== ENCOUNTER 2024-09-25 12:45 | Outpatient (AMB) | payer MEDICARE, SELFPAY ==
--- NOTE | 2024-09-25 12:55 | A.OFFVIS_ITS ---
Vital Signs 09/25/24 13:00 Height 5 ft 9 in Weight 201 lb BMI 29.7 BP 132/71 Blood Pressure Location Lt brachial Position Sitting Pulse 106 H Pulse Source Pulse Oximeter Pulse Oximetry (%) 100 Oxygen Delivery Method Room Air Intake Visit Reasons: follow up xray results Intake Note: Pain today 10 Therapy Assistant Required: Yes Therapy Assistant Language: Price Changer Services: Therapy Assistant Present Accompanied by: Self / Same As Patient Allergies No Known Allergies Allergy (Verified 06/29/24 14:36) HPI Comments Details: The patient is a 54-year-old male presenting for follow up to discuss recent xray results and reports persistent left knee pain with history of patellofemoral syndrome. The patient also continues to endorse low back pain radiating to the left hip and knee, which was initially evaluated in June. Currently, the most significant pain is localized to the left knee, rated as a 6 out of 10 in severity. The patient has not received any knee injections previously and has undergone physical therapy for two months, which provided temporary relief. The pain tends to worsen with prolonged walking, climbing stairs and is also present upon waking in the morning. The patient has been using pwji-xxe-ntiwtwf Tylenol, Ibuprofen and diclofenac gel for pain management, which have been somewhat effective. X-rays have shown arthritis and degenerative changes in the lower back, sacroiliac joints, hips, and knees. The patient was previously diagnosed with patellofemoral syndrome of the left knee by [facility] in 2019. He was advised to use a knee brace and continue physical therapy, which he has partially adhered to. Patient is hesitant toward interventional treatments to adress axial low back pain and left knee pain. He plans to follow up with [facility]. - Onset: Initially evaluated in June with back pain radiating to the left hip and knee. - Quality: Pain is rated as a 6 out of 10 in severity. - Location: Most significant pain is localized to the left knee. Low back with radiations to buttocks and hips. - Exacerbating factors: Pain worsens with prolonged walking, climbing stairs and is present upon waking in the morning. - Relieving factors: Temporary relief with physical therapy and use of trjs-zjg-vywwjgm medications and diclofenac gel. - Affect: Pain impacts daily activities, particularly with prolonged walking. - Analgesia: Current pain level is 6 out of 10; uses kavd-kyb-nxvfnih medications and diclofenac gel. - Adverse Effects: No adverse effects from current medications reported. - Activities of Daily Living: Pain interferes with walking and morning activities. - Aberrant Drug Related Behaviors: No aberrant behaviors reported. PRIOR: The patient is a 54-year-old male presenting with chronic low back pain radiating to the left hip and knee, persisting over two years. The patient rates this pain as most intense during mornings and afternoons, with a reduction in severity during evenings. There has been no injury associated with this onset of pain, and the patient has not undergone any invasive procedures, although he is currently engaged in physical therapy at [facility]. The pain radiates to left buttock and into left hip with occasional radiation into groin with cramping. Patient also reports history of bilateral knee pain due to osteoarthritis and worsening left knee pain. He reports bilateral knee pain exacerbated by cold weather conditions, walking, and climbing stairs, with tenderness increasing during certain movements such as bending. An MRI previously conducted did not elucidate a cause for the ongoing back and sciatica pain per PCP referral notes. A complete MRI report is not available for review today. Diagnosed knee osteoarthritis adds to this complex pain scenario. Further complications include reliance on a cane due to intermittent leg weakness and the presence of psychiatric disorders. He receives [employer] services, including assistance of taking daily medications as he cannot read. The patient has been on ibuprofen therapy, which provides some relief for the hip, back and knee-related discomfort. - Onset/Timing: Chronic, ongoing for about two years; worse in morning and afternoon, better in the evening. - Quality/Character: Tingling numbness, cramping, hurting, sore sensation. - Primary Location: Low back. Left knee. - Radiation: Left buttock, back of the left leg, hip and groin. - Exacerbating Factors: Morning and afternoon time, walking, climbing stairs, cold weather, bending down, bending backward. - Relieving Factors: Evening, resting. - Interference with Activities: Walking, use of a cane due to leg weakness, difficulty with stairs. - Affect: Pain has led to potential avoidance of interventions involving needles. - Analgesia: Currently taking ibuprofen 800 mg as needed every eight hours for pain, reported as helpful. - Adverse Effects: None reported from ibuprofen. - Activities of Daily Living: Pain causes difficulty in walking and using stairs; requires use of a cane. - Aberrant Drug Related Behaviors: None reported. [facility] Medical History Thalassemia trait Amputation of left little finger Hearing loss Anxiety Sleep disturbance Hyperlipidemia Erectile dysfunction Bipolar 1 disorder Schizophrenia Depression Social History Alcohol intake: never Patient Tobacco Use Status: Former Tobacco user Review of Systems Const Details: - Musculoskeletal: Reports pain in the left knee, worsens with walking, present upon waking. Low back pain with radiation to hips and buttocks. Left knee pain is worse than back pain. - Neurological: Denies weakness, numbness or tingling, bladder or bowel dysfunction or saddle anesthesia. All systems reviewed & are unremarkable except as noted in HPI and below Physical Exam Vital Signs: Last Vital Signs Pulse 106 H 09/25/24 13:00 BP 132/71 09/25/24 13:00 Pulse Ox 100 09/25/24 13:00 Oxygen Delivery Method Room Air 09/25/24 13:00 BMI result Body Mass Index 29.7 General: Appears afebrile. Alert and oriented. Mood and affect appropriate. Follows and participates in conversation appropriately. Respiratory effort is unlabored. No cough. Able to transition from sit to stand unassisted. Uses cane with ambulation. Ambulates with bilaterally normal heel strike and toe off. General: Yes no CVA tenderness Back/Spine/Pelvis Other: Limited lumbar ROM due to pain. Mildly antalgic gait with slight limping. Lumbar extension and axial rotations reproduce mild to moderate pain. Flexion is intact and does not reproduce pain. Demonstrates 5/5 right and 4/5 left strength of quadriceps bilaterally as well as flexion/dorsiflexion of bilateral feet against resistance. 2+ pedal pulses bilaterally. Straight leg rise with dorsiflexion negative bilaterally. +1 patellar and achilles reflexes bilaterally. Facet loading test positive bilaterally. Naveed sign, Juan?s, Pelvic compression and Stinchfield tests are positive bilaterally. Mild groin pain with I/E hip rotations on the left. Valsalva maneuver is negative. Back: no CVA tenderness Cervical Spine: cervical ROM normal and No Cervical spine tenderness Thoracic/Lumbar Spine: thoracic and lumbar spine normal to inspection, No Thoracic/lumbar spine scar(s), Lasegue's sign negative, straight leg raise negative bilaterally, pain with thoraco-lumbar ROM, paraspinal muscle tenderness (mild), thoraco-lumbar ROM limited, No thoracic spinal tenderness and No lumbar spinal tenderness Pelvis: no buttock tenderness Sacroiliac joints: bilaterally tender to palpation Extrem General: Yes capillary refill normal, Yes no clubbing, cyanosis or edema and Yes no calf tenderness Left lower extremity: knee (Limited ROM due to pain.) Details: normal to inspection, tenderness Location: of the medial joint line, of the lateral joint line and of the pre-patellar area and crepitus; no swelling, no ecchymosis and no unusual warmth Results Reviewed Results Reviewed: XR knee LT 3V 07/06/24 CLINICAL HISTORY: M25.561 - Pain in right knee Exam: AP, lateral, and sunrise views of the left knee. Comparison: None. Findings: Please note that the clinical indication for this study is ???pain in right knee. however, the images are left knee radiographs. Clinical correlation advised. Borderline patella rich. Bony alignment is otherwise anatomic. No acute fracture. Mild degenerative change of the patellofemoral joint. Enthesopathic change of the superior aspect of the patella at the expected insertion of the quadriceps tendon. No joint effusion. Impression: 1. Potential right/left discrepancy as discussed above. Clinical correlation advised. 2. Borderline patella rich with mild patellofemoral joint DJD. XR hip LT w PEL1V 07/06/24 CLINICAL HISTORY: M25.552 - Pain in left hip Exam: AP pelvis with AP and frog-leg lateral views of the left hip. Comparison: None. Findings: Bony alignment of the hip joints is anatomic. No fracture or erosion. Mild bilateral hip DJD. Sacroiliac joints and pubic symphysis are unremarkable. Impression: Mild degenerative change without acute finding. XR lumbar spine 4V min 07/06/24 CLINICAL HISTORY: M54.50 - Low back pain, unspecified 5 views lumbar spine Comparison: None Findings: Normal alignment. No acute fractures or dislocation. There are multilevel degenerative changes. There are multilevel lumbar spine osteophytes. There is multilevel facet sclerosis. There is mild lumbar spine dextroscoliosis. There are mild degenerative changes of the SI joints. IMPRESSION: Multilevel spondylosis, no acute fractures. Assessment & Plan Assessment & Plan (1) Patellofemoral syndrome, left: Code(s): M22.2X2 - Patellofemoral disorders, left knee Category: Medical (2) Left knee pain: Code(s): M25.562 - Pain in left knee Category: Medical (3) Bilateral primary osteoarthritis of knee: Code(s): M17.0 - Bilateral primary osteoarthritis of knee Category: Medical (4) Chronic low back pain: Code(s): M54.50 - Low back pain, unspecified; G89.29 - Other chronic pain Category: Medical (5) Sacroiliac joint pain: Code(s): M53.3 - Sacrococcygeal disorders, not elsewhere classified Category: Medical (6) Left hip pain: Code(s): M25.552 - Pain in left hip Category: Medical (7) Lumbar spondylosis: Code(s): M47.816 - Spondylosis without myelopathy or radiculopathy, lumbar region Category: Medical Plan Discussed imaging results and treatments options, including diagnostic vs therapeutic injections, genicular and lumbar RFA, and peripheral nerve stimulation with Sprint PNS treatments. Patient is hesitant towards injections at this time. The patient will be referred to [facility] for further evaluation and management of left knee pain and patellofemoral syndrome. A knee brace will be sent to the patient's pharmacy to aid in stabilization and support of the left knee. The patient is advised to continue with NSAIDs and Tylenol prn, rest, elevation, heat/ice therapy and diclofenac gel for pain management. If the pain persists or worsens, the patient is encouraged to consider interventional pain management options, including injections, which can be scheduled upon request. All questions and concerns have been answered and patient agreed with the plan. Follow up as needed. Patient was informed and verbally consented to the use of an ambient scribe for clinic note documentation during this visit. Orders: Referrals Orthopedics Referral M17.0 - Bilateral primary osteoarthritis of knee, M22.2X2 - Patellofemoral disorders, left knee, M25.562 - Pain in left knee Medications: New leg brace (Knee Support Brace) As directed 1 ea 0RF knee support M22.2X2 - Patellofemoral disorders, left knee, M25.562 - Pain in left knee Coding Level of Care Code Est Pt Level 4 (88470) Complex EM visit Add On G2211 Diagnoses Patellofemoral syndrome, left M22.2X2 Left knee pain M25.562 Bilateral primary osteoarthritis of knee M17.0 Chronic low back pain M54.50; G89.29 Sacroiliac joint pain M53.3 Left hip pain M25.552 Lumbar spondylosis M47.816
[2024-09-25 13:00] VITALS: BP 132/71; PULSE 106; O2SAT 100; BMI 29.7
--- OUTSIDE RECORDS SUMMARY | 2024-09-25 13:40 | XMS_ITS | Patient Health Record ---
Author Organization [facility] Address [address] [facility] [address] [place] [phone] Care Team Providers Care Deburrer Machine Name Role Phone Humza Ham Primary Care Provider Allergies No Known Allergies Results Component Value Reference Range Notes MR Lumbar Spine WO Reviewed date:10/12/2023 06:56:22 PM Interpretation: Performing Lab: Notes/Report: Original Ordering Provider: HUMZA HAM [facility] XR KNEE 4+ VIEWS BILAT Reviewed date:08/29/2024 11:44:13 AM Interpretation: Performing Lab: Notes/Report: See Note [facility], a member of [employer] Date of Visit: 07/19/2024 Reason for visit: Bilateral knee pain Views: AP, Lateral, [place], [place] bilateral knee Findings: On AP view medial and lateral compartments are fairly well-maintained without any significant narrowing. No significant osteophyte formation. Patellofemoral compartment well-maintained on sunrise view. No acute findings Impression: Intact bilateral knees with minimal degenerative changes CBC With Differential/Platel et-[id number] Reviewed date:04/30/2024 07:45:57 PM Interpretation: Performing Lab:Labcobrenda Zambrano, [address], [place], Phone - [phone], Director - Jose Notes/Report: Clinical Information:SRC: WBC [...] (14)-3 Reviewed date:04/30/2024 07:45:57 PM Interpretation: Performing Lab:Akash Zambrano, [address] [place] [address], Phone - [phone], Director - Jose Notes/Report: Clinical Information:SRC: Glucose [...] IU/L ALT (SGPT) 30 0-44 IU/L LP+Non-HDL Cholesterol-[id number] 5 Reviewed date:04/30/2024 07:45:57 PM Interpretation: Performing Lab:Akash Zambrano, [address] [facility], Phone - [phone], Director - Jose Notes/Report: Clinical Information:SRC: Cholesterol, Total 112 100-199 mg/dL Triglycerides 111 0-149 mg/dL HDL Cholesterol 37 >39 mg/dL VLDL Cholesterol Titus 20 5-40 mg/dL LDL Chol Calc ([facility]) 55 0-99 mg/dL Non-HDL Cholesterol 75 0-129 mg/dL Comp. Metabolic Panel (14)-3 Reviewed date:09/04/2024 06:31:20 AM Interpretation: Performing Lab:[facility] [place], [address] [facility], Phone - [phone], Director - Jose Notes/Report: Glucose 123 70-99 mg/dL BUN 14 6-24 mg/dL Creatinine 1.00 0.76-1.27 mg/dL eGFR 89 >59 mL/min/1.73 BUN/Creatinine Ratio 14 9-20 Sodium 141 134-144 mmol/L Potassium 4.2 3.5-5.2 mmol/L Chloride 105 96-106 mmol/L Carbon Dioxide, Total 22 20-29 mmol/L Calcium 9.3 8.7-10.2 mg/dL Protein, Total 7.0 6.0-8.5 g/dL Albumin 4.3 3.8-4.9 g/dL Globulin, Total 2.7 1.5-4.5 g/dL Bilirubin, Total 0.4 0.0-1.2 mg/dL Alkaline Phosphatase 110 44-121 IU/L AST (SGOT) 27 0-40 IU/L ALT (SGPT) 34 0-44 IU/L CBC With Differential/Platel et-[id number] Reviewed date:02/06/2024 06:37:26 PM Interpretation: Performing Lab:[facility] [place], [address] [facility], [place], Phone - [phone], Director - Jose Notes/Report: Clinical Information:SRC: WBC 6.8 3.4-10.8 x10E3/uL Effective February 14, 2024 profile [id number] WBC will be made non-orderable as a [...] Grans (Abs) 0.0 0.0-0.1 x10E3/uL Vitamin D, 38-Mokfmba-[id number] Reviewed date:02/06/2024 06:37:26 PM Interpretation: Performing Lab:[facility] [place], [address] [facility], Phone - [phone], Director - Jose Notes/Report: Clinical Information:SRC: Vitamin D, 25-Hydroxy 20.9 30.0-100.0 ng/mL Vitamin D deficiency has been defined by the [place] of Medicine and an Endocrine Society practice guideline as a level of serum 25-OH vitamin D less than 20 ng/mL (1,2). The Endocrine Society went on to further define vitamin D insufficiency as a level between 21 and 29 ng/mL (2). 1. IOM ([place] of Medicine). 2010. Dietary reference intakes for calcium and D. [place]: The National Academies Press. 2. Miguelina MF, Wang [place], [place] COX, et al. Evaluation, treatment, and prevention of vitamin D deficiency: an Endocrine Society clinical practice guideline. JCEM. 2010; 96(7):1911-30. HCV Antibody RFX to Quant PC [id number] Reviewed date:02/06/2024 06:37:26 PM Interpretation: Performing Lab:[facility] [place], [facility], [place], Phone - [phone], Director - Jayey Notes/Report: Clinical Information:SRC: Clinical Information:SRC: HCV Ab Non Reactive Non Reactive Interpretation: Not infected with HCV unless early or acute infection is suspected (which may be delayed in an immunocompromised individual), or other evidence exists to indicate HCV infection. Comp. Metabolic Panel (14)-3 [id number] Reviewed date:02/06/2024 06:37:26 PM Interpretation: Performing Lab:Akash Zambrano, [address] [place] [address], Phone - [phone], Director - Jose Notes/Report: Clinical Information:SRC: Glucose [...] IU/L ALT (SGPT) 33 0-44 IU/L LP+Non-HDL Cholesterol-41145 5 Reviewed date:02/06/2024 06:37:26 PM Interpretation: Performing Lab:Akash Zambrano, [facility], Phone - [phone], Director - Jose Notes/Report: Clinical Information:SRC: Cholesterol, Total 128 100-199 mg/dL Triglycerides 152 0-149 mg/dL HDL Cholesterol 36 >39 mg/dL VLDL Cholesterol Titus 26 5-40 mg/dL LDL Chol Calc (NIH) 66 0-99 mg/dL Non-HDL Cholesterol 92 0-129 mg/dL UA/M w/rflx Culture, Routine -[id number] Reviewed date:02/06/2024 06:37:26 PM Interpretation: Performing Lab:[facility], [facility], Phone - [phone], Director - Jose Notes/Report: Clinical Information:SRC: Clinical Information:SRC: Specific [place] 1.020 1.005-1.030 pH 6.0 5.0-7.5 Urine-Color Yellow [...] seen /lpf Bacteria None seen None seen/Few Reason For Referral Reason Pt with OA both knee s and would benefit from ortho consult , Any available provider, Needs a Shoveler faxed Diagnosis 1 Bilateral primary os teoarthritis of knee (M17.0) Referral Organization [facility] Referring Provider First Name Humza Referring Provider Last Name Macrina Referring Provider Speciality Nurse Guanakito mendiola Referred Provider Mackenzie Cabezas Referred Provider Specialty Orthopedic S urgery General Notes Jessica MARIE 09/12 12:16:00 PM >[facility] 04/27/2024 10:20:37 AM >Patient states not hearing from referral, but patient needs desktop analyst. Will refax referral and follow up for appt., Jessica MARIE 05/18/2024 10:34:13 AM >Updating referral, sending to Dr. Cabezas office Referral Priority Routine Referral Appointment Date 07/19/2024 Reason lumbar pain with rad iating pain down left leg - MRI was without significant findings. Would benefit from consult for persistent pain faxed PATIENT NEEDS THERMODYNAMICS TEACHER Diagnosis 1 Lumbago with sciatic a, left side (M54.42) Referral Organization [facility] Referring Provider First Name Humza Referring Provider Last Name Macrina Referring Provider Speciality Nurse Guanakito mendiola Referred Provider [facility] Referred Provider Specialty Pain Medicin e General Notes Jessica MARIE 01/14 05:37:01 PM >faxed, Jessica MARIE 04/27/2024 10:02:08 AM >Spoke to barbra Larson 05/15/24 2pm. Wrote down the appt and address for patient. Notified him to bring partner since they do not have a auto battery builder in the office., Humza Ham Domenico 05/08/2024 12:31:11 PM EST > We can refer pt to [facility], as long as his insurance is in network there, Jessica MARIE 05/08/2024 12:51:27 PM >Patient needs local provider since he takes public transportation. Will fax to [facility], Jessica MAREI 05/09/2024 03:20:18 PM >Completed [facility] form and faxedCYNTHIA Giselle 06/13/2024 09:17:23 AM >[facility] does not take patients insurance, TE to provider, Jessica MARIE 06/13/2024 02:31:41 PM >Updating referral to [facility] Referral Priority Routine Medications Medication SIG (Take, Route, Frequency, Duration) Notes Start Date End Date Status Vitamin D3 50 MCG (1999) 2 tablets Orally Once a day; Duration: 90 days 02/06/2024 01/31/2025 Active Diclofenac Sodium 1 % APPLY TOPICALLY TO AFFECTED AREA ONCE DAILY EXTERNALLY DAILY 90 DAYS; Duration: 90 Active clonazePAM 1 MG 1 tablet Orally Once a day Active Ibuprofen 800 MG TOME 1 TABLETA POR V IA ORAL CADA 8 HORAS CUANDO SEA NECESARIO CON COMIDA O LECHE; Duration: 90 Active risperiDONE 4 MG 1 tablet Orally Once a day; Duration: 30 day(s) Active Terbinafine HCl 250 MG TOME 1 TABLETA PO R VIA ORAL TODOS LOS RODNEY FOR 90 DAYS; Duration: 90 Active Citalopram Hydrobromide 20 MG 1 tablet Orally Once a day; Duration: 30 day(s) Active Rosuvastatin Calcium 20 MG TOME 1 TABLET A POR VIA ORAL TODOS LOS RODNEY AL ACOSTARSE FOR 90 DAYS; Duration: 90 Active Benztropine Mesylate 1 MG 1 tablet Orall y Once a day; Duration: 30 day(s) Active QUEtiapine Fumarate 400 MG 1 tablet at b edtime Orally Once a day; Duration: 30 days Active cloNIDine 0.1 MG/24HR 1 patch to skin Transdermal Active guanFACINE HCl 1 MG 1 tablet at bedtime Orally Once a day; Duration: 30 day(s) Active Citalopram Hydrobromide 40 MG 1 tablet Orally Once a day; Duration: 30 days Active Zolpidem Tartrate 10 MG 1 tablet at bedt evelyn as needed Orally Once a day Active Immunizations Vaccine Route Administration Date Status Comme nts *Shingrix Unknown 01/14/2021 Administered *Shingrix Unknown 05/12/2021 Administered *Tdap Unknown 08/05/2017 Administered [id number]-62-Tdorzdr Vaccine Unknown 07/06/2020 Administere d [id number]-31-Yfoxpqx Vaccine Unknown 08/05/2020 Administere d Pneumococcal polysaccharide PPV23 Unknown 08/05/2017 Ad ministered Problems Problem Type SNOMED Code ICD Code Onset Dates Problem Status W/U Status Risk Notes Problem Alpha thalassemia (47889604) Alpha thalassemia (D56.0) Active confirmed Problem Vitamin D deficiency (25616763) Vitamin D deficiency, unspecified (E55.9) Active confirmed Problem Mixed hyperlipidemia (893226507) Mixed hyperlipidemia (E78.2) Active confirmed Problem Paranoid schizophrenia (00474892) Paranoid schizophrenia (F20.0) Active confirmed Problem Mixed bipolar affective disorder, mild (312023944) Bipolar disorder, current episode mixed, mild (F31.61) Active confirmed Problem Mixed conductive and sensorineural hearing loss, bilateral (263877013) Mixed conductive and sensorineural hearing loss, 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) Active confirmed Problem Osteoarthritis of knee (198555355) Bilateral primary osteoarthritis of knee (M17.0) Active confirmed Problem Sciatica (60872576) Lumbago with sciatica, left side (M54.42) Active confirmed Problem Erectile dysfunction co-occurrent and due to arterial insufficiency (disorder) (868362005446756) Erectile dysfunction due to arterial insufficiency (N52.01) Active confirmed Vital Signs Heart Rate 89 /min 08/31/2024 Temperature 97.5 degrees Fahrenheit 08/31/2024 Blood pressure diastolic 66 mm Hg 08/31/2024 Oximetry 98 % 08/31/2024 Height 5 ft 9 in in 08/31/2024 Blood pressure systolic 114 mm Hg 08/31/2024 Weight 208 lbs 08/31/2024 BMI 30.71 kg/m2 08/31/2024 Encounters Encounter Location Date Provider Diagnosis [facility]athy Argueta MD [address] [id number] 10/04/2023 Humza Argueta MD [address] [id number] 11/22/2023 Humza Argueta MD [address] [id number] 01/10/2024 Humza Ham Mixed hyperlipidemia E78.2 [facility] MD [address] [id number] 02/04/2024 Humza Argueta MD [address] [id number] 02/06/2024 Humza Ham Vitamin D deficiency , unspecified E55.9 [facility] MD [address] [id number] 05/04/2024 Humza Argueta MD [address] [id number] 05/04/2024 Humza Argueta MD [address] [id number] 06/13/2024 Humza Argueta MD [address] [id number] 08/15/2024 Humza Argueta MD [address] [id number] 08/31/2024 Humza Ham Bilateral primary osteoarthritis of knee M17.0 and Vitamin D deficiency, unspecified E55.9 [facility]athy [facility] MD [address] [id number] 02/03/2024 Humza Ham Encounter for genera l [...] and behavioral disorders Z13.39 [facility]athy [facility] [address] [id number] 09/29/2023 Humza Ham Bilateral primary osteoarthritis of knee M17.0 ; Lumbago with sciatica, left side M54.42 ; Mixed hyperlipidemia E78.2 ; Mixed conductive and sensorineural hearing loss, bilateral H90.6 ; Bipolar disorder, current episode mixed, mild F31.61 and Paranoid schizophrenia F20.0 [facility] [address] [id number] 04/27/2024 Humza Ham Mixed hyperlipidemia E78.2 ; Mixed conductive and sensorineural hearing loss, bilateral H90.6 ; Lumbago with sciatica, left side M54.42 ; Bilateral primary osteoarthritis of knee M17.0 ; Bipolar disorder, current episode mixed, mild F31.61 ; Paranoid schizophrenia F20.0 ; Alpha thalassemia D56.0 and Tinea unguium B35.1 [facility] [address] [id number] 08/31/2024 Humza Ham Mixed hyperlipidemia E78.2 ; Tinea unguium B35.1 ; Bilateral primary osteoarthritis of knee M17.0 ; Bipolar disorder, current episode mixed, mild F31.61 ; Paranoid schizophrenia F20.0 and Alpha thalassemia D56.0 Assessments Encounter Date Diagnosis (ICD Code) Assessment Notes Treatment Notes Treatment Clinical Notes Section Notes 02/03/2024 Mixed hyperlipidemia (ICD-10 - E78.2) Stable [...] (ICD-10 - H90.6) Stable at present time 08/31/2024 Bilateral primary osteoarthritis of knee (ICD-10 - M17.0) 08/31/2024 Tinea unguium (ICD-10 - B35.1) Reviewed with patient his right toenail fungal infection that has resolved with terbinafine use. Discussed with patient that penitentiary use of this medication is not warranted and we will d/c use of this oral treatment as infection has resolved. Patient aware to follow up with any recurrent toenail concerns. Will also obtain a comp panel to reassess LFTs given use of this oral medication for greater than 6 months 08/31/2024 Mixed hyperlipidemia (ICD-10 - E78.2) Stable on previous lab results and LDL remain under 70 01/10/2024 Mixed hyperlipidemia (ICD-10 - E78.2) 09/29/2023 Bilateral [...] replacements given progressive OA and persistent pain 09/29/2023 Lumbago with sciatica, left side (ICD-10 [...] underlying stenosis. Patient agreeable with this plan 08/31/2024 Bilateral primary osteoarthritis of knee (ICD-10 - M17.0) Patient continues to have pain in both knees related to osteoarthritis. Patient was seen by orthopedics and is completing a course of physical therapy, which he states has not overall improved his pain but he continues to go as scheduled. Patient to follow-up with orthopedics as scheduled to discuss alternative treatment plans should PT not help resolve or improve his pain 04/27/2024 Lumbago with sciatica, left side (ICD-10 [...] proper management of his persistent back pain 08/31/2024 Vitamin D deficiency, unspecified (ICD-10 - E55.9) 02/03/2024 Mixed conductive and sensorineural hearing loss, bilateral (ICD-10 - H90.6) Stable at present time 02/03/2024 Lumbago with sciatica, left side (ICD-10 [...] Patient to remain on current statin therapy 08/31/2024 Bipolar disorder, current episode mixed, mild (ICD-10 - F31.61) Stable at present time and patient to remain on current medication regimen to further manage his visual and auditory hallucinations. Patient feels safe and well supported with his mental health providers and he continues to take his medications as prescribed 09/29/2023 Mixed conductive and sensorineural hearing loss, [...] continues to take his medications as prescribed 08/31/2024 Paranoid schizophrenia (ICD-10 - F20.0) See plan above.Patient to continue following up with his therapist and mental health prescriber as scheduled and remain on current medication regimen 02/03/2024 Bilateral primary osteoarthritis of knee (ICD-10 - M17.0) Patient continues to have pain in both knees related to osteoarthritis, that is worse during cold weather. Patient was evaluated by orthopedic providers through [facility] but there was no interventions discussed with patient. Patient has also not been able to refill diclofenac as his insurance carrier will not cover this. Patient is requesting an up dated referral for second opinion given his persistent knee pain due to OA. 02/03/2024 Bipolar disorder, current episode mixed, mild (ICD-10 - F31.61) Stable on current medication regimen per patient. Patient to continue working with his mental health providers and prescribers to manage his underlying bipolar disorder 04/27/2024 Paranoid schizophrenia (ICD-10 - F20.0) See plan above.Patient to continue following up with his therapist and mental health prescriber as scheduled and remain on current medication regimen 08/31/2024 Alpha thalassemia (ICD-10 - D56.0) Patient with a history of alpha thalassemia 09/29/2023 Bipolar disorder, current episode mixed, mild (ICD-10 - F31.61) Stable on current medication regimen per patient. Patient to continue working with his mental health providers and prescribers to manage his underlying bipolar disorder 09/29/2023 Paranoid schizophrenia (ICD-10 - F20.0) Stable [...] at this time 09/29/2023 Other Provided jerrod nt with contact information for [facility] ([facility]) and encouraged patient to reach out to this provider to see if his insurance is excepted 02/03/2024 Other 08/31/2024 Other air battle manager, Jessica, used during today's visit Plan Of Treatment Pending Test Test Name Order Date COMPLETE CBC WITH DIFF 05/11/2023 COLONOSCOPY 12/14/2022 PERIPHERAL BLOOD SMEAR REVIEW 05/11/2023 Next Appt Details Provider Name:Humza Ham , 2025 10:30:00 AM, [address] [place] [address], [address], [place], [place], [phone], Insurance Providers Payer Name Payer Address Payer Phone Subscriber Number Group Number Insured Name Patient Relationship to Insured Coverage Start Date Coverage End Date [employer] [address] [address] [place] [address] [id number] Grant King Self - patient is the insured Medical (General) History Medical History History ICD Code Hyperlipidemia Sleep disturbances Bipolar Anxiety Schizophrenia hearing loss - since 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
--- OUTSIDE RECORDS SUMMARY | 2024-09-25 13:40 | XMS_ITS | Clinical Summary ---
Author Organization [facility] Address [address] [place] [address] Care Team Providers Care Photo Mask Inspector Name Role Phone Bandar Goode [facility] Primary Care Prov ider Source Comments PLEASE NOTE, if this patient [...] Overview (11/24/2016): Refuses shots Alcoholism in remission ([facility]) 07/01/19 17 Pterygium eye 03/25/2015 Anxiety and depression 10/04/2014 Overview (01/27/2022): Jan 2022: [facility] 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 Overview (10/04/2014): Since a kid Never had therapy Applying for disab and got appt with a speech therapist in [place] Immunizations Immunization Administration Dates Next Due Moderna COVID-19 Vaccine, re d cap blue label, 12+ Primary Series 08/05/2020,07/06/2020,07/06/2020 PNEUMOCOCCAL POLYSACCHARIDE PPV23 (Pneumovax 23) 08/05/2017 TDAP 08/05/2017 ZOSTER VACCINE, RECOMBINANT (SHINGRIX) [...] Years Used Date Smoking Tobacco: Former Cigarettes 04 05 Smokeless Tobacco: Former Quit: 12/05/2004 Tobacco Cessation:Counseling [...] 91 06/01/2022 9:58 AM EDT Temperature 37.1 C (98.7 F) 01/27/2022 9:36 AM EST Respiratory Rate 18 01/27/2022 9:36 AM EST [...] Fecal DNA 2014 Flexible Sigmoidoscopy 2014 Imm-Pneumococcal 50+ (2 of 2 - PCV) 08/05/2018 08/05/2017 Depression Monitoring 04/29/2022 01/27/2022 , 01/14/2021, 08/14/2020, Additional history exists Annual Wellness (Adult): Indicated (All Coverage) 01/27/2023 01/27/2022, 08/14/2020, 08/05/2017, Additional history exists Colorectal Cancer Screening 01/27/2023 Diabetes Screening 01/27/2023 01/27/2022, 1 03/29/2021, 04/02/2020, Additional history exists FIT/gFOBT 01/27/2023 01/27/2022, 08/21/2020 Lipid Screening 01/27/2023 01/27/2022, 03/15, 12/05/2018, Additional history exists Hypertension Screening (#1) 06/01/2023 Dental BW 06/04/2023 06/01/2022, 12/01/2021 Dental Examination 06/04/2023 06/01/2022, 0 06/01/2022, 12/01/2021 Dental Prophy 06/04/2023 06/01/2022, 12/01/2021 [id number] ( season) 2023 08/05/2020, 07/06/2020, 07/06/2020 Alcohol [...] Recently Relevant to Health Maintenance Results * FIT, [facility] (01/27/2022 7:00 PM EST) FECAL GLOBIN BY IMMUNOCHEMISTRY See Note [facility] Comment: FECAL GLOBIN BY IMMUNOCHEMISTRY Micro Number: [id number] Test Status: Final Specimen Source: Insure (tm) fobt test card Specimen Quality: Adequate Fecal Globin: Not Detected Comment: Test results may be invalid as no date of collection was provided. Specimens are stable for 14 days. Stool Stool specimen / Unknown 01/27/2022 7:00 PM EST 01/30/2022 12:13 AM EST Bandar Godoe [facility] BODY FLUIDS AN D STOOLS AMBULATORY Final Result Performing Organization Address [facility]/ZIP Co de Phone Number [facility] [address] [place] [address], [facility] [address] [address] * HEPATITIS C AB W/RFLX HCV RNA, QT, RT PCR (01/27/2022 10:20 AM EST) HEPATITIS C ANTIBODY NON-REACT LOUIS NON-REACT LOUIS [facility] SIGNAL TO CUT-OFF 0.07 <1.00 [facility] Comment: HCV antibody was non-reactive. There is no laboratory evidence of HCV infection. In most cases, no further action is required. However, if recent HCV exposure is suspected, a test for HCV RNA (test code 82558) is suggested. For additional information please refer to http://Keenko.MOBEXO/faq/HYK21i9 (This link is being provided for informational/ educational purposes only.) Blood Blood / Unknown 01/27/2022 1 0:20 AM EST 01/27/2022 10:21 AM EST Bandar Goode [facility] - BLOOD DRAW E dited Result - Final Performing Organization Address [facility]/ZIP Co de Phone Number [facility] [address] [place] [address], [facility] [address] [address] * HIV 1/2 AG & AB W/RFLX (4TH GEN) (01/27/2022 10:20 AM EST) HIV AG/AB, 4TH GEN NON-REAC TIVE NON-REAC TIVE [facility] Comment: HIV-1 antigen and HIV-1/HIV-2 antibodies were not detected. There is no laboratory evidence of HIV infection. PLEASE NOTE: This information has been disclosed to you from records whose confidentiality may be protected by state law. If your state requires such protection, then the state law prohibits you from making any further disclosure of the information without the specific written consent of the person to whom it pertains, or as otherwise permitted by law. A general authorization for the release of medical or other information is NOT sufficient for this purpose. For additional information please refer to http://Keenko.MOBEXO/faq/AZH508 (This link is being provided for informational/ educational purposes only.) The performance of this assay has not been clinically validated in patients less than 2 years old. Blood Blood / Unknown 01/27/2022 1 0:20 AM EST 01/27/2022 10:21 AM EST Bandar Goode [facility] - BLOOD DRAW F inal Result [facility] [address] [address], [facility] [address] [place] [address],[place] [address] * (ABNORMAL) LIPID PANEL (01/27/2022 10:20 AM EST) CHOLESTEROL, TOTAL 142 <200 mg/dL [facility] HDL CHOLESTEROL 34(L) > OR = 40 mg/dL [facility] TRIGLYCERIDES 294(H) <150 mg/dL [facility] Comment: If a non-fasting specimen was collected, consider repeat triglyceride testing on a fasting specimen if clinically indicated. Gurjit et al. J. of Clin. Lipidol. 2015;9:129-169. LDL-CHOLESTEROL 73 99 mg/dL (calc) [facility] Comment: Reference range: <100 Desirable range <100 mg/dL for primary prevention; <70 mg/dL for patients with CHD or diabetic patients with > or = 2 CHD risk factors. LDL-C is now calculated using the Pee-Ayaka calculation, which is a validated novel method providing better accuracy than the Friedewald equation in the estimation of LDL-C. Pee MCALLISTER et al. TEO. 2013;310(19): 9988-1725 (http://education.Geofusion/faq/RLS917) CHOL/HDLC RATIO 4.2 <5.0 (calc) [facility] NON-HDL CHOLESTEROL 108 <130 mg/dL (calc) [facility] Comment: For patients with diabetes plus 1 major ASCVD risk factor, treating to a non-HDL-C goal of <100 mg/dL (LDL-C of <70 mg/dL) is considered a therapeutic option. Blood Blood / Unknown 01/27/2022 1 0:20 AM EST 01/27/2022 10:21 AM EST Bandar Goode [facility] - BLOOD DRAW F inal Result [facility] [address] [address], [facility] [address] [address] * (ABNORMAL) COMPRE METAB PANEL (01/27/2022 10:20 AM EST) GLUCOSE 107(H) 65 - 99 mg/dL [facility] Comment: Fasting reference interval For someone without known diabetes, a glucose value between 100 and 125 mg/dL is consistent with prediabetes and should be confirmed with a follow-up test. UREA NITROGEN (BUN) 16 7 - 25 mg/dL [facility] CREATININE (blood) 1.08 0.70 - 1.30 mg/dL [facility] EGFR 83 > OR = 60 mL/min/1 .73m2 [facility] Comment: The eGFR is based on the CKD-EPI 2020 equation. To calculate the new eGFR from a previous Creatinine or Cystatin C result, go to https://www.kidney.org/professionals/ kdoqi/gfr%5Fcalculator BUN/CREATININE RATIO NOT APPLICABLE 6 - 22 [facility] SODIUM 139 135 - 146 mmol/L [facility] POTASSIUM 4.1 3.5 - 5.3 mmol/L [facility] CHLORIDE 105 98 - 110 mmol/L [facility] CARBON DIOXIDE 23 20 - 32 mmol/L [facility] CALCIUM 10.0 8.6 - 10.3 mg/dL [facility] PROTEIN, TOTAL 7.0 6.1 - 8.1 g/dL [facility] ALBUMIN 4.3 3.6 - 5.1 g/dL [facility] GLOBULIN 2.7 1.9 - 3.7 g/dL (calc) [facility] ALBUMIN/GLOBUL IN RATIO 1.6 1.0 - 2.5 (calc) [facility] BILIRUBIN, TOTAL 0.4 0.2 - 1.2 mg/dL [facility] ALKALINE PHOSPHATASE 87 35 - 144 U/L [facility] AST 20 10 - 35 U/L [facility] ALT 21 9 - 46 U/L [facility] Blood Blood / Unknown 01/27/2022 1 0:20 AM EST 01/27/2022 10:21 AM EST [facility] - BLOOD DRAW E dited Result - Final [facility] [address] [address], [facility] [address],[facility] [place] [address] from Last 3 Months or Most Recently Relevant to Health Maintenance Insurance [employer] DENTAL MEDICAID [facility]AL [facility] Care Teams Photo Mask Inspector Relationship Specialty Start Date End Date Bandar Goode FNP [address] [place] [address] PCP - General Family Medicine, CREDENTIALING SPECIALIST 01/31/20
--- OUTSIDE RECORDS SUMMARY | 2024-09-25 13:40 | XMS_ITS | Clinical Summary ---
Author Organization [address] [place] [address] Address [address] [place] [address] Phone Care Team Providers Care Museum Service Scheduler Name Role Phone Cathy Argueta MD Primary Care Provider [phone] Allergies No known active allergies Medications acetaminophen (TYLENOL) 500 mg capsule Take by mouth. Active zolpidem (AMBIEN) 10 mg tablet TOME 1 TABLETA POR V A ORAL TODOS LOS D AL ACOSTARSE Active cholecalciferol (VITAMIN D-3) 50 mcg (2,000 unit) tablet TOME DOS TABLETAS POR V A ORAL TODOS LOS D FOR 90 DAYS 5 Active risperiDONE (RisperDAL) 4 mg tablet TOME DOS TABLETAS POR V A ORAL AL ACOSTARSE Active benztropine (COGENTIN) 1 mg tablet TOME 1 TABLETA POR V A ORAL DOS VECES AL D A Active guanFACINE (TENEX) 1 mg tablet TAKE 1 TABLET BY MOUTH TWICE A DAY FOR MOOD/ ANXIETY Active cloNIDine (CATAPRES) 0.1 mg tablet TOME JESSICA TABLETA POR V A ORAL CHRIS VECES AL D A IF TOLERATED Active citalopram (CeleXA) 40 mg tablet TOME 1 TABLETA POR V A ORAL TODOS LOS D EN LA MA RK Active citalopram (CeleXA) 20 mg tablet TOME 1 TABLETA POR V A ORAL TODOS LOS D EN LA MA RK Active rosuvastatin (CRESTOR) 20 mg tablet TOME 1 TABLETA POR VIA ORAL TODOS LOS RODNEY AL ACOSTARSE FOR 90 DAYS 5 Active QUEtiapine (SEROquel) 400 mg tablet TOME 1 TABLETA POR V A ORAL TODOS LOS D AL ACOSTARSE 5 Active ibuprofen (ADVIL,MOTRIN) 800 mg tablet TOME 1 TABLETA POR V A ORAL CADA 8 HORAS CON COMIDA O LECHE CUANDO SEA NECESARIO Active clonazePAM (KlonoPIN) 1 mg tablet TAKE 1 TABLET BY MOUTH THREE TIMES A DAY NEEDED FOR ANXIETY NEEDED Active diclofenac (VOLTAREN) 1 % topical gelIndications:Remi ateral primary osteoarthritis of knee Apply 4 g topically 4 (four) times a day if needed (pain or swelling). 100 g 2 Active Active Problems Problem Noted Date Diagnosed Date Bipolar disorder, most recen t episode depressed ([facility] V24, [facility] V28) 07/20/2024 Hyperlipidemia 07/20/2024 Insomnia 07/20/2024 Patellofemoral disorders, left knee 07/20/2024 Gynecomastia 02/02/2022 Auditory hallucination 01/27/2022 Overview (07/20/2024): Admits voices tell him to harm himself Alpha thalassemia trait 01/14/2021 Overview (07/20/2024): Per heme and genetics- no further workup needed Alcoholism in remission ([facility] V24, [facility] V2 8) 06/30/2016 Pterygium eye 03/25/2015 Anxiety and depression 10/04/2014 Overview (07/20/2024): Jan 2022[facility] 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 Overview (07/20/2024): Since a kid Never had therapy Applying for disab and got appt with a speech therapist in [place] Encounters Date Type Department Care Team Description 09/13/2024 9:00 AM EDT Treatment [address] [address] Lorenzo Mercado, PT Patellofemoral arthralgia of left knee (Primary Dx) 09/08/2024 10:00 AM EDT Treatment [facility] [address] [address] Lorenzo Mercado, PT Patellofemoral arthralgia of left knee (Primary Dx); It band syndrome, left 09/06/2024 10:30 AM EDT Treatment [address] [address] Lorenzo Mercado, PT Patellofemoral arthralgia of left knee (Primary Dx) 09/04/2024 2:00 PM EDT Treatment [address] [address] Hemanth Balderas, WAX PATTERN ASSEMBLER Patellofemoral arthralgia of left knee (Primary Dx) 08/29/2024 10:30 AM EDT Treatment [address] [address] Hemanth Balderas, WAX PATTERN ASSEMBLER Patellofemoral arthralgia of left knee (Primary Dx) 08/23/2024 9:00 AM EDT Treatment [address] [address] Lorenzo Mercado, PT Patellofemoral arthralgia of left knee (Primary Dx) 08/21/2024 6:00 PM EDT Treatment [address] [address] Hemanth Balderas, WAX PATTERN ASSEMBLER Patellofemoral arthralgia of left knee (Primary Dx) 08/16/2024 10:30 AM EDT Treatment [address] [address] Hemanth Balderas, WAX PATTERN ASSEMBLER Patellofemoral arthralgia of left knee (Primary Dx) 08/14/2024 2:00 PM EDT Evaluation [address] [address] Lorenzo Mercado, PT Patellofemoral arthralgia of left knee; It band syndrome, left 07/19/2024 2:30 PM EDT Consult [facility] - [place] [address] [address] Lesly Elmore NP Patellofemoral arthralgia of left knee (Primary Dx); Bilateral primary osteoarthritis of knee; It band syndrome, left from Last 3 Months Social History Tobacco Use Types Packs/Day Years [...] Blood Pressure 130/78 02/18/2022 1:43 PM EST Cu ff Pulse 98 02/18/2022 1:43 PM EST Temperature - - Respiratory Rate - - Oxygen Saturation - - Inhaled Oxygen Concentration - - Weight 92.5 kg (204 lb) 07/19/2024 2:32 PM EDT Height 175.3 cm (5' 9 ) 07/19/2024 2:32 PM EDT Body Mass Index 30.13 07/19/2024 2:32 PM EDT Plan of Treatment Health Maintenance Due Date Last Done Comments Hepatitis A Vaccines (1 of 2 - Risk 2-dose series) 02/08/1988 Hepatitis B Vaccines (1 of 3 - 19+ 3-dose series) 02/08/1988 Pneumococcal Vaccine: 50+ Years (2 of 2 - PCV) 08/05/2018 08/05/2017 HIV Screening 02/15/2022 Medicare Annual Wellness Visit 02/15/2022 Social Influencers of Health Screening 02/15/2022 Colorectal Cancer Screening: Stool Based Tests (FOBT/FIT) 01/27/2023 01/27/2022 Depression Screening 01/27/2023 01/27/2022 COVID-19 Vaccine ( season) 2023 08/05/2020, 07/06/2020 Influenza Vaccine (#1) 2024 Cholesterol Screening (Lipid Panel) 01/27/2027 01/27/2022, 01/27/2022, 04/02/2020, Additional history exists DTaP,Tdap,and Td Vaccines (2 - Td or Tdap) 08/06/2027 08/05/2017 Zoster Vaccines Completed 05/12/2021, 01/14/2021 Hepatitis C Screening Completed 01/27/2022 HIB Vaccines Aged Out No longer eligi [...] to complete this topic RSV Immunization Patients Under 20 months Aged Out No longer eligible based on patient's age to complete this topic Varicella Vaccines Aged Out No longer eligible based on patient's age to complete this topic Goals Goal Patient Goal Type Associated Problems Recent Progress Patient-Stated? Author PT LTGs General No Lorenzo Mercado, PT Note: Pt will ambulate without AD x6 minutes without left knee pain - not met Pt will ascend/descend 12 steps with reciprocal pattern and no left knee pain - not met Pt will be independent with HEP - met Procedures Procedure Name Priority Date/Time Associated Diagnosis Comments XR KNEE 4+ VIEWS BILAT Routine 07/19/2024 2:20 PM EDT Bilateral primary osteoarthritis of knee from Last 3 Months Results * XR Knee 4+ Views bilat (07/19/2024 2:20 PM EDT) Anatomical Region Laterality Modality Lower Extremities, Knee Bilateral Computed Radiography Narrative 07/20/2024 3:20 PM EDT Date of Visit: 07/19/2024 Reason for visit: Bilateral knee pain Views: AP, Lateral, Stevenson, Capac bilateral knee Findings: On AP view medial and lateral compartments are fairly well-maintained without any significant narrowing. No significant osteophyte formation. Patellofemoral compartment well-maintained on sunrise view. No acute findings Impression: Intact bilateral knees with minimal degenerative changes us Lesly Elmore BUSINESS ANALYTICS DIRECTOR IMG XR PROCEDURES Final Result from Last 3 Months Insurance [employer] MEDICARE MEDICAID - [place] Care Teams Museum Service Scheduler Relationship Specialty Start Date End Date Cathy Argueta MD [address] [address] PCP - General Internal Medicine 06/07/24
== END 2024-09-25 13:29 | disposition home or self-care (01) ==
LOC: HO.PMC 12:45
PROVIDERS: PCP Internal Medicine; Visit Provider Nurse Practitioner Family
DX: M22.2X2 Patellofemoral disorders, left knee (principal); M25.562 Pain in left knee; M17.0 Bilateral primary osteoarthritis of knee; M54.50 Low back pain, unspecified; G89.29 Other chronic pain; M53.3 Sacrococcygeal disorders, not elsewhere classified; M25.552 Pain in left hip; M47.816 Spondylosis without myelopathy or radiculopathy, lumbar region
CPT/HCPCS: 99214; G2211

== ENCOUNTER → 2024-09-25 12:45 | Outpatient (BNVA) | payer MEDICARE, SELFPAY | PROVIDERS: PCP Internal Medicine; Visit Provider Nurse Practitioner Family | DX: M22.2X2 Patellofemoral disorders, left knee (principal); M25.562 Pain in left knee; M17.0 Bilateral primary osteoarthritis of knee; M53.3 Sacrococcygeal disorders, not elsewhere classified; M25.552 Pain in left hip; M54.59 Other low back pain; M47.816 Spondylosis without myelopathy or radiculopathy, lumbar region; G89.29 Other chronic pain | CPT/HCPCS: 99212 ==